=== PATIENT | female | born 1965 | race Caucasian/White ===

== ENCOUNTER 2017-05-25 08:59 | Observation (INO) ==
[2017-05-25] MEDS ORDERED: Naloxone 0.4 MG/ML INJ IVP PRN (09:16)
[2017-05-25] MEDS ORDERED: Ondansetron 4 MG/2 ML VIAL IVP PRN (09:16)
[2017-05-25] MEDS ORDERED: Acetaminophen 325 MG TABLET PO PRN (09:16)
--- NOTE | 2017-05-25 09:41 | Urology History & Physical ---
Date of Encounter: 05/25/17 Time of Encounter: 09:38 Assessment and Plan (1) Ureterolithiasis Current Visit: No Status: Acute 51-year-old woman with a history of a left ureteral stone and left renal stones. I have admitted her for pain control. We will anticipate proceeding with a left ureteroscopy, laser lithotripsy, and stent placement tomorrow to manage her pain. She was informed of the risks of the surgery including but not limited to bleeding, infection, injury to other structures, need for further procedures, stent irritation, incomplete fragmentation, ureteral perforation, need for nephrostomy tube, need for open repair, risks unforeseen, and the risk of anesthesia. She is willing to proceed. History of Present Illness Chief complaint: Left flank pain HPI: Ms. Baltazar is a 51 year old female who presents with a history of left flank pain. She has a history of nephrocalcinosis. She was proceeding by Dr. Restrepo. He performed a left ureteroscopy approximately year ago. She returns with left flank pain. A recent CT scan showed a 3 mm stone possibly seen in the left mid ureter. She says the pain is completely uncontrolled. She was visited in the office earlier today and then was admitted. The pain is in the left flank and radiates to the groin. It is severe. Pain medication does not help the pain. She denies any fevers or chills. Past Med Surg Social Fam HX - Past Medical History Medical history: hyperlipidemia, kidney stones, other Psychiatric history: anxiety - Past Surgical History Surgical History: hysterectomy - Social History Smoking Status: Never smoker Smokeless Tobacco Status: No Alcohol use: none Drug use: none - Family History Mother Hx Family Genitourinary Disorders: No Medications and Allergies Gabapentin [Neurontin] 600 mg PO BID 03/15/16 [History] Trazodone HCl [TraZODone] 100 mg PO HS PRN 03/15/16 [History] clonazePAM [Klonopin] 0.5 mg PO BID 03/15/16 [History] lamoTRIgine [Lamictal] 200 mg PO BID 03/15/16 [History] Dexmethylphenidate HCl [Dexmethylphenidate HCl ER] 25 mg PO DAILY 05/25/17 [ History] Diclofenac Sodium 25 mg PO BID 05/25/17 [History] SUMAtriptan succinate [Imitrex] 50 mg PO Q2H PRN 05/25/17 [History] Vitamin E 400 unit PO DAILY 05/25/17 [History] 3 Allergy/AdvReac Type Severity Reaction Status Date / Time codeine AdvReac Itching Verified 05/25/17 09:38 prochlorperazine AdvReac See Verified 05/25/17 09:38 Comments Review of Systems - Constitutional no chills, no fever(s) - EENT Nose, mouth and throat: no dizziness - Cardiovascular no chest pain - Respiratory no dyspnea - Gastrointestinal nausea, no vomiting - Genitourinary Genitourinary: flank pain, no hematuria - Musculoskeletal no back pain - Integumentary no erythema, no rash - Neurological no weakness - Psychiatric no suicidal ideation - Hematologic/Lymphatic no easy bleeding - Allergic/Immunologic no wheezing Exam Initial Vital Signs Temp Pulse Resp BP Pulse Ox 97.8 F 70 16 175/109 100 05/25/17 09:35 05/25/17 09:35 05/25/17 09:35 05/25/17 09:35 05/25/17 09:35 - General physical appearance Present: well developed, well nourished, moderate distress - Eyes Absent: icteric - ENT Present: normal nares - Neck Present: trachea midline - Respiratory Present: normal respiratory effort - Cardiovascular Cardiovascular exam IM: RRR - Abdomen Abdomen: Present: soft Urology Results - Labs All other labs normal. - Imaging CT scan - abdomen: report reviewed, image reviewed CT scan - pelvis: report reviewed, image reviewed
[2017-05-25] MEDS ORDERED: traZODone 50 MG TABLET PO PRN (09:43)
[2017-05-25] MEDS ORDERED: SUMAtriptan succinate 50 MG TABLET PO PRN (09:43)
[2017-05-25] MEDS: *HR* HYDROmorphone (PF) 1 MG/ML SYRINGE IVP PRN ×5 (10:33→23:50)
[2017-05-25] MEDS: 0.9 % Sodium Chloride 1,000 ML IVC SCH ×2 (10:33→20:46)
[2017-05-25] MEDS: *HR* OxyCODONE Immed Rel 5 MG TABLET PO PRN ×2 (11:54→18:06)
[2017-05-25 12:54] LABS: Basophils % 0.4 %; Eosinophils # 0.4 K/mcL (0.0-0.6); Eosinophils % 5.1 %; Hematocrit 38.5 % (35.3-44.9); Hemoglobin 12.6 g/dL (11.5-15.4); Immature Granulocytes % 0.3 % (0-4); Immature Platelets 2.6 % (1.1-6.1); Lymphocytes # 1.9 K/mcL (0.6-4.6); Lymphocytes % 26.8 %; Mean Corpuscular HGB Conc 32.7 g/dL (31.6-35.5); Mean Corpuscular Hemoglobin 29.4 pg (28.0-33.3); Mean Platelet Volume 9.8 fL (9.4-12.4); Monocytes # 0.3 K/mcL (0.0-1.3); Monocytes % 4.4 %; Neutrophils # 4.6 K/mcL (1.6-8.9); Platelet Count 305 K/mcL (140-400); Red Blood Count 4.28 M/mcL (3.82-4.97); Red Cell Distribution Width 14.1 % (11.5-14.5)
[2017-05-25 13:13] LABS: BUN/Creatinine Ratio 19 (6-26); Blood Urea Nitrogen 15 mg/dL (7-20); Calcium 10.2 mg/dL (8.6-10.8); Carbon Dioxide 26 mEq/L (19-29); Chloride 108 mEq/L (98-109); Glucose 87 mg/dL (70-99); Osmolality,Calculated 288 (280-300); Potassium 4.3 mEq/L (3.5-4.5); Sodium 139 mEq/L (136-145); eGFR For African Americans > 60 (> 60); eGFR For Non-African Americans > 60 (> 60)
[2017-05-25] MEDS ORDERED: lamoTRIgine 100 MG TABLET PO SCH (21:00)
[2017-05-25] MEDS ORDERED: clonazePAM 0.5 MG TABLET PO SCH (21:00)
[2017-05-25] MEDS ORDERED: Gabapentin 300 MG CAPSULE PO SCH (21:00)
--- NOTE | 2017-05-25 22:19 | Anesthesia Evaluation PreOp ---
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: Other (Mood disorder maintained on Lamictal, Trazadone, Klonopin, Focalin, Neurontin) Other Medical History: Denies Any Significant HX Anesthesia History: No Prior Anesthetic Complications, Past Anesthesia (L- ureteral stone extraction 03/2017, Hammer toe correction 2014) : No Test: Negative Alcohol Use: none Drug use: none Medications and Allergies Gabapentin [Neurontin] 600 mg PO BID 03/15/16 [History] Trazodone HCl [TraZODone] 100 mg PO HS PRN 03/15/16 [History] clonazePAM [Klonopin] 0.5 mg PO BID 03/15/16 [History] lamoTRIgine [Lamictal] 200 mg PO BID 03/15/16 [History] Dexmethylphenidate HCl [Dexmethylphenidate HCl ER] 25 mg PO DAILY 05/25/17 [ History] Diclofenac Sodium 25 mg PO BID 05/25/17 [History] SUMAtriptan succinate [Imitrex] 50 mg PO Q2H PRN 05/25/17 [History] Vitamin E 400 unit PO DAILY 05/25/17 [History] 3 Allergy/AdvReac Type Severity Reaction Status Date / Time codeine AdvReac Itching Verified 05/25/17 09:38 prochlorperazine AdvReac See Verified 05/25/17 09:38 Comments - Meds/Allergy Pre-op Review Medications Reviewed: Yes Allergies Reviewed: Yes Beta Blockers on Current Med List: No Anesthesia Results - Labs 05/25/17 12:43 05/25/17 12:43 Laboratory Tests 05/23/17 05/25/17 21:46 12:43 Est GFR (Non-Af Amer) > 60 Urine Test Negative Laboratory Results - Imaging EKG: image reviewed Chest x-ray: report reviewed Anesthesia Exam Vital Signs Temp Pulse Resp BP Pulse Ox 05/25/17 19:07 97.5 F L 76 14 148/80 98 05/25/17 14:32 97.9 F 71 15 119/80 99 05/25/17 11:51 98.0 F 73 16 162/81 99 05/25/17 09:35 97.8 F 70 16 175/109 100 Intake and Output 05/25/17 05/25/17 05/25/17 07:59 15:59 23:59 Intake Total 120 / 120 1120 / 1120 Output Total 0 / 0 100 / 100 Balance 120 / 120 1020 / 1020 Intake: IV Fluids 1000 / 1000 0.9 % Sodium Chloride 1, 1000 / 1000 000 ML @ 125 mls/hr IVC . Q8H MICH Rx#:[id number] Oral 120 / 120 120 / 120 Output: Urine 0 / 0 100 / 100 Other: Meal Dinner Percent of Meal Consumed 100% Weight 62.5 kg Patient Weight 05/25/17 23:59 Weight 62.5 kg Weight: 137# NPO (# of Hours): MNOc - HEENT Pupil (Motor): Pupils equal, EOMI Mallampati: II Teeth: Normal Oral Opening: Greater than 3 - HUMAN CAPITAL CONSULTANT LOC: Oriented HUMAN CAPITAL CONSULTANT Motor: Normal RUE, Normal LUE, Normal RLE, Normal LLE, Normal Face [employer]AN [employer]ITAL CONSULTANT Sensory: Normal: RUE, LUE, RLE, LLE, Face - Cardiac Rhythm: Regular Murmur: None - Pulmonary Breath Sounds: bilateral Clear Respiratory Effort: Symmetrical Anesthesia Assess/Plan ASA Score: 2 Modified [place] Scale for Level of Consciousness: Cooperative, oriented, and tranquil Anesthetic Plan: General Monitoring Plan: Standard Monitors Recovery Plan: PACU
[2017-05-25 22:40] LABS: Bilirubin,Urine Negative (Negative); Blood,Urine Moderate (Negative); Clarity,Urine Clear (Clear); Color,Urine Yellow (Yellow); Glucose,Urine (UA) Normal (Normal); Ketones,Urine Negative (Negative); Leukocyte Esterase,Urine Moderate (Negative); Nitrite,Urine Negative (Negative); Protein,Urine Negative (Neg-Trace); Specific Gravity,Urine 1.013 (1.010-1.025); Urobilinogen,Urine Normal (Normal)
[2017-05-25 22:43] LABS: Bacteria,Urine None Seen per hpf (None-Few); Hyaline Casts,Urine None Seen per lpf (None-Few); RBC,Urine 30-50 per hpf (0-3); Squamous Epithelial Cell,Urine Many per lpf (None-Few); WBC,Urine 15-30 per hpf (0-3)
[2017-05-25] MEDS: Ketorolac 30 MG/ML VIAL IVP SCH (23:48)
[2017-05-26] MEDS: *HR* HYDROmorphone (PF) 1 MG/ML SYRINGE IVP PRN ×6 (02:08→10:06)
[2017-05-26] MEDS: Ketorolac 30 MG/ML VIAL IVP SCH (06:04)
[2017-05-26] MEDS: 0.9 % Sodium Chloride 1,000 ML IVC SCH (06:05)
[2017-05-26] MEDS ORDERED: Levofloxacin 500 MG/100 ML 500 MG/100 ML BAG IVPB ONE (07:00)
--- NOTE | 2017-05-26 07:12 | Urology Progress Note ---
Date of Encounter: 05/26/17 Time of Encounter: 07:10 - Assessment and Plan (1) Ureterolithiasis Current Visit: No Status: Acute Assessment and plan: Left sided stones. Plan for left ureteroscopy, laser lithotripsy, and stent placement. Antibiotic being given. All risks were informed. She is willing to proceed. Progress Note Narrative: 51 year old woman with left renal stone and left distal ureteral stone. She is still having pain. Plan for ureteroscopy today. Objective Initial Vital Signs Temp Pulse Resp BP Pulse Ox 97.8 F 70 16 175/109 100 05/25/17 09:35 05/25/17 09:35 05/25/17 09:35 05/25/17 09:35 05/25/17 09:35 - General physical appearance Present: well developed, well nourished, moderate distress - Respiratory Present: normal respiratory effort - Abdomen Present: soft - Labs 05/25/17 12:43 05/25/17 12:43 Diabetes panel 05/25/17 Range/Units 12:43 Sodium 139 (136-145) mEq/L Potassium 4.3 (3.5-4.5) mEq/L Chloride 108 (98-109) mEq/L Carbon Dioxide 26 (19-29) mEq/L BUN 15 (7-20) mg/dL Creatinine 0.80 (0.57-1.11) mg/dL Glucose 87 (70-99) mg/dL Calcium 10.2 (8.6-10.8) mg/dL Calcium panel 05/25/17 Range/Units 12:43 Calcium 10.2 (8.6-10.8) mg/dL Pituitary panel 05/25/17 Range/Units 12:43 Sodium 139 (136-145) mEq/L Potassium 4.3 (3.5-4.5) mEq/L Chloride 108 (98-109) mEq/L Carbon Dioxide 26 (19-29) mEq/L BUN 15 (7-20) mg/dL Creatinine 0.80 (0.57-1.11) mg/dL Glucose 87 (70-99) mg/dL Calcium 10.2 (8.6-10.8) mg/dL Adrenal panel 05/25/17 Range/Units 12:43 Sodium 139 (136-145) mEq/L Potassium 4.3 (3.5-4.5) mEq/L Chloride 108 (98-109) mEq/L Carbon Dioxide 26 (19-29) mEq/L BUN 15 (7-20) mg/dL Creatinine 0.80 (0.57-1.11) mg/dL Glucose 87 (70-99) mg/dL Calcium 10.2 (8.6-10.8) mg/dL Consult Discharge Plan - Plan Referrals: Kelly Nieto DO [Primary Care Provider] -
[2017-05-26] MEDS ORDERED: Ringers Solution, Lactated 1,000 ML ONE (07:42)
[2017-05-26] MEDS ORDERED: ceFAZolin 2,000 MG in D5% in Water 100 ML IVPB ONE (07:45)
[2017-05-26] MEDS ORDERED: *HR* Propofol 200 MG/20 ML VIAL IVP ONE (07:49)
[2017-05-26] MEDS ORDERED: Lidocaine -MPF 2% 2 ML VIAL ONE (07:49)
[2017-05-26] MEDS ORDERED: *HR* FentaNYL (PF) 100 MCG/2 ML VIAL ONE (07:49)
[2017-05-26] MEDS ORDERED: Dexamethasone 4 MG/ML VIAL ONE (08:24)
[2017-05-26] MEDS ORDERED: Ondansetron 4 MG/2 ML VIAL ONE (08:24)
[2017-05-26] MEDS ORDERED: *HR* Promethazine 25 MG/ML VIAL IVP PRN (08:30)
[2017-05-26] MEDS ORDERED: Ondansetron 4 MG/2 ML VIAL IVP ONE (08:30)
[2017-05-26] MEDS ORDERED: Ringers Solution, Lactated 1,000 ML IVC SCH (08:30)
--- NOTE | 2017-05-26 08:54 | Operative Note ---
Date of procedure: 05/26/17 Pre-op diagnosis: Left renal stone Post-op diagnosis: same Procedure: Left ureteroscopy, laser lithotripsy, basket stone extraction, left ureteral stent placement. Implants: 4.8 [place] x 24cm JJ stent. Complications: none. Anesthesia: GETA Surgeon: Jacoby Luevano Specimen: none Condition: stable Disposition: PACU Procedure in Detail: Indications: Mandi is a 51-year-old woman who has a history of left flank pain. A CT scan showed stone in her left kidney and a possible distal left ureteral stone. She has continued left flank pain. She wishes to have the stone removed. Therefore , she elected undergo a left ureteroscopy, laser lithotripsy, basket stone extraction, and left ureteral stent placement. She is aware of the risks of the procedure including but not limited to bleeding, infection, injury to other structures, need for further procedures, need for stent, stent irritation, need for nephrostomy tube, incomplete treatment, need for open repair, risks unforeseen, and the risk of anesthesia. She is on proceed. Procedure: After informed consent was obtained the patient was brought back to the operating room and placed in supine position. A time out was performed. General anesthesia was administered and an LMA was placed. She was then placed in the lithotomy position. She was prepped and draped in the usual sterile fashion. Cystoscopy was performed. The anterior urethra was normal. There was no evidence of bladder tumors. The ureteral orifices were in the normal orthotopic position. A Zip wire was placed in the left ureteral orifice. The wire was brought into the kidney under fluoroscopic guidance. The distal ureter was gently dilated with the 11 [place] dilator. The semirigid ureteroscope was advanced into the ureter. No stone was seen in the ureter. The scope was advanced into the proximal ureter. A sensor wire was then placed in the scope and the scope was removed. I tended to pass the 11/13 [place] ureteral access sheath, but it did not move beyond the distal ureter. This was then removed. I then advanced the flexible ureteroscope over the sensor wire into the kidney under fluoroscopic guidance. The sensor wire was removed. All the calyces were surveyed. There was stone in the lower pole calyx. The lower pole stone was basketed and removed into the upper pole calyx. The remaining portion of the stone debris in the lower pole calyx was very small and irrigated out of the lower pole calyx. One stone fragment was basket extracted and deployed into the bladder. The larger stone was then fractionated using the 200 micron laser fiber into small pieces. All fragments appeared to be less than 1 mm in diameter. Once adequate fragmentation was performed I removed the scope. A 4.8 [place] by 24 cm double-J stent was then placed with good curl seen in the bladder and the kidney. The bladder was drained. The dangle string was tucked into the vagina and will be used to remove the stent at a later date. The patient was then awakened from general anesthesia and brought to recovery room in good condition. All sponge, needle, and instrument counts were correct.
--- NOTE | 2017-05-26 08:56 | Discharge Summary ---
Date of Encounter: 05/26/17 Time of Encounter: 08:54 - Discharge Diagnosis (1) Ureterolithiasis Priority: Primary Status: Acute - Discharge Medications Prescriptions: Oxycodone HCl/Acetaminophen [Percocet 5-325 mg Tablet] 1 each PO Q4HR PRN #20 tablet PRN Reason: Pain Docusate [Colace] 100 mg PO BID #60 capsule Phenazopyridine HCl [Pyridium] 200 mg PO TIDAC #12 tab Home Medications: Gabapentin [Neurontin] 600 mg PO BID 03/15/16 [History] Trazodone HCl [TraZODone] 100 mg PO HS PRN 03/15/16 [History] clonazePAM [Klonopin] 0.5 mg PO BID 03/15/16 [History] lamoTRIgine [Lamictal] 200 mg PO BID 03/15/16 [History] Dexmethylphenidate HCl [Dexmethylphenidate HCl ER] 25 mg PO DAILY 05/25/17 [ History] Diclofenac Sodium 25 mg PO BID 05/25/17 [History] SUMAtriptan succinate [Imitrex] 50 mg PO Q2H PRN 05/25/17 [History] Vitamin E 400 unit PO DAILY 05/25/17 [History] Docusate [Colace] 100 mg PO BID #60 capsule 05/26/17 [Rx] Oxycodone HCl/Acetaminophen [Percocet 5-325 mg Tablet] 1 each PO Q4HR PRN #20 tablet 05/26/17 [Rx] Phenazopyridine HCl [Pyridium] 200 mg PO TIDAC #12 tab 05/26/17 [Rx] Allergies/Adverse Reactions: 3 Allergy/AdvReac Type Severity Reaction Status Date / Time codeine AdvReac Itching Verified 05/25/17 09:38 prochlorperazine AdvReac See Verified 05/25/17 09:38 Comments Labs on day of discharge: Labs from last 24 hours 05/26/17 05/25/17 05/25/17 05:53 22:30 22:30 WBC RBC Hgb Hct MCV MCH MCHC RDW Plt Count MPV Immature Gran % Seg Neutrophils % Lymphocytes % Monocytes % Eosinophils % Basophils % Neutrophils # Lymphocytes # Monocytes # Eosinophils # Basophils # Immature Plt Fraction Sodium Potassium Chloride Carbon Dioxide BUN Creatinine Est GFR ( Amer) Est GFR (Non-Af Amer) BUN/Creatinine Ratio Glucose POC Glucose 84 Calculated Osmolality Calcium Urine Color Yellow Urine Clarity Clear Urine pH 7.0 Ur Specific [place] 1.013 Urine Protein Negative Urine Glucose (UA) Normal Urine Ketones Negative Urine Blood Moderate H Urine Nitrite Negative Urine Bilirubin Negative Urine Urobilinogen Normal Ur Leukocyte Esterase Moderate H Urine Microscopic RBC 30-50 H Urine Microscopic WBC 15-30 H Ur Squamous Epith Cells Many H Urine Bacteria None Seen Hyaline Casts None Seen Ur Culture Indicated? YES A Urine Test Negative Specimen Rejected 05/25/17 05/25/17 05/25/17 12:43 12:43 10:53 WBC 7.3 RBC 4.28 Hgb 12.6 Hct 38.5 MCV 90.0 MCH 29.4 MCHC 32.7 RDW 14.1 Plt Count 305 MPV 9.8 Immature Gran % 0.3 Seg Neutrophils % 63.0 Lymphocytes % 26.8 Monocytes % 4.4 Eosinophils % 5.1 Basophils % 0.4 Neutrophils # 4.6 Lymphocytes # 1.9 Monocytes # 0.3 Eosinophils # 0.4 Basophils # 0.0 Immature Plt Fraction 2.6 Sodium 139 Potassium 4.3 Chloride 108 Carbon Dioxide 26 BUN 15 Creatinine 0.80 Est GFR ( Amer) > 60 Est GFR (Non-Af Amer) > 60 BUN/Creatinine Ratio 19 Glucose 87 POC Glucose Calculated Osmolality 288 Calcium 10.2 Urine Color Urine Clarity Urine pH Ur Specific [place] Urine Protein Urine Glucose (UA) Urine Ketones Urine Blood Urine Nitrite Urine Bilirubin Urine Urobilinogen Ur Leukocyte Esterase Urine Microscopic RBC Urine Microscopic WBC Ur Squamous Epith Cells Urine Bacteria Hyaline Casts Ur Culture Indicated? Urine Test Specimen Rejected Clotted Date of admission: 05/25/17 09:07 Primary care physician: Kelly Nieto DO Discharging clinician: Jacoby Luevano Anticipated date of discharge: 05/26/17 - Patient Status Disposition: Home, Self-Care Condition: Good Functional capacity at discharge: independent ambulation Overall status at discharge: patient is progressing back to baseline - Discharge Instructions Follow Up With: Jacoby Luevano MD [Partnered Physician] - (in 2-4 weeks.) Additional Instructions: 1. The patient can remove her stent on 05/31/2017 by pulling on the string. Otherwise,she can return to our office for removal. 2. She should expect to feel flank pain with voiding. 3. The patient should call for any fevers, chills, nausea, emesis, or uncontrolled pain. 4. Please provide a work excuse if necessary for up to 1 week off. 5. She should expect to see blood in the urine. - Diet and Activity Activity: increase activity as tolerated Diet: advance to your usual diet - Hospital Course Hospital course: Ms. Baltazar is a 51 year old female was admitted for left flank pain. She had a CT which showed left renal stones and a possible left ureteral stone. Her pain was not adequately controlled and on May 26, 2017 she underwent a left ureteroscopy, laser lithotripsy, stent placement. She did well after surgery and was discharged home later that day. - Time Spent with Patient Total time spent providing and/or coordinating discharge services: Less than 30 minutes Exam Initial Vital Signs Temp Pulse Resp BP Pulse Ox 97.8 F 70 16 175/109 100 05/25/17 09:35 05/25/17 09:35 05/25/17 09:35 05/25/17 09:35 05/25/17 09:35 - General physical appearance Present: well developed, well nourished, no distress - Eyes Absent: icteric - ENT Present: normal nares - Neck Present: trachea midline - Respiratory Present: normal respiratory effort - Cardiovascular Cardiovascular exam IM: RRR - Abdomen Abdomen: Present: soft
[2017-05-26] MEDS ORDERED: DEXMETHYLPHENIDATE HCL 25 MG PO SCH (09:00)
--- NOTE | 2017-05-26 10:18 | Anesthesia Evaluation Post Op ---
Date of Encounter: 05/26/17 Time of Encounter: 10:17 - Vital Signs Vital Signs: Vital Signs/O2 Sat, Most Current Temp Pulse Resp BP Pulse Ox 97.9 F 63 16 151/85 100 05/26/17 09:49 05/26/17 10:09 05/26/17 10:09 05/26/17 10:09 05/26/17 10:09 - Lungs Lungs: Clear Ascult./Percussion - Airway Airway: Non-obstructed - Cardiovascular Regular Rate - Mental Status Mental Status: Alert & Oriented, Answers Appropriately - Pain Pain Scale: 0 Pain Scale used: Numeric (1 - 10) - Nausea Vomiting Nausea Vomiting: Not Present - Hydration Hydration: Ice chips, Able to void Notes: 05/26/17 10:17 I have assessed this patient and find they meet discharge criteria. - Discharge PostOp Status: Transfer Patient to floor
[2017-05-26] MEDS ORDERED: SUMAtriptan succinate 50 MG TABLET PO PRN (10:41)
[2017-05-26] MEDS ORDERED: *HR* Belladonna Alkaloids/Opium 30 MG RECTAL SUPPOSITORY RC PRN (10:41)
[2017-05-26] MEDS ORDERED: *HR* OxyCODONE Immed Rel 5 MG TABLET PO PRN (10:41)
[2017-05-26] MEDS ORDERED: *HR* HYDROmorphone (PF) 1 MG/ML SYRINGE IVP PRN (10:41)
[2017-05-26] MEDS ORDERED: Ondansetron 4 MG/2 ML VIAL IVP PRN (10:41)
[2017-05-26] MEDS ORDERED: 0.9 % Sodium Chloride 1,000 ML IVC SCH (10:41)
[2017-05-26] MEDS ORDERED: Naloxone 0.4 MG/ML INJ IVP PRN (10:41)
[2017-05-26] MEDS ORDERED: traZODone 50 MG TABLET PO PRN (10:41)
[2017-05-26] MEDS ORDERED: Acetaminophen 325 MG TABLET PO PRN (10:41)
[2017-05-26] MEDS ORDERED: Ketorolac 30 MG/ML VIAL IVP SCH (12:00)
[2017-05-26 14:47] VITALS: BP 167/75
[2017-05-26] MEDS ORDERED: lamoTRIgine 100 MG TABLET PO SCH (21:00)
[2017-05-26] MEDS ORDERED: Gabapentin 300 MG CAPSULE PO SCH (21:00)
[2017-05-26] MEDS ORDERED: clonazePAM 0.5 MG TABLET PO SCH (21:00)
[2017-05-27] MEDS ORDERED: DEXMETHYLPHENIDATE HCL 25 MG PO SCH (09:00)
== END 2017-05-26 14:00 | disposition home or self-care (01) ==
LOC: 3ANU
PROVIDERS: ADMIT Urology; ATTEND Urology

== ENCOUNTER 2018-10-12 13:09 | Observation (INO) ==
[2018-10-12] MEDS ORDERED: Ketorolac 15 MG/ML VIAL IVP ONE (14:21)
[2018-10-12] MEDS ORDERED: Hyoscyamine SL 0.125 MG TAB.SUBL SL STA (14:21)
[2018-10-12] MEDS ORDERED: *HR* FentaNYL (PF) 100 MCG/2 ML VIAL IVP ONE (14:21)
[2018-10-12] MEDS ORDERED: Ondansetron 4 MG/2 ML VIAL IVP ONE (14:21)
--- NOTE | 2018-10-12 14:24 | Emergency Department Note ---
Disposition Clinical Impression: Ureterolithiasis, Urinary retention Disposition: Admitted As Inpatient Condition: Undetermined Time of Disposition: 18:03 Abdominal Pain HPI - General Chief Complaint: ED Abdominal Pain Stated Complaint: Kidney stones Time Seen by Provider: 10/12/18 14:14 Source: patient Mode of arrival: ambulatory Limitations: no limitations Nursing Notes Reviewed: Yes Vital Signs Reviewed: Yes - History of Present Illness HPI Narrative: 53-year-old female history of kidney stones arrives to the emergency department complaining of 2 days of right flank pain radiating down into her pubic region. The patient states this initially felt similar to previous kidney stones but the patient states that her pain is acutely worsened. The patient states she feels a large amount of pressure in her pubic region which she states is unusual for her. The patient states that she has associated nausea and vomiting. The patient has hematuria as well. The patient denies any vaginal discharge, chest pain, difficulty breathing. The patient is in a moderate amount of distress in the room secondary to pain. She is unable to sit still secondary pain. She denies any other complaints at this time. Pain Scale: 10 - Related Data Home Medications Medication Instructions Recorded Confirmed Gabapentin [Neurontin] 600 mg PO BID 03/15/16 05/25/17 Trazodone HCl [TraZODone] 100 mg PO HS PRN 03/15/16 05/25/17 clonazePAM [Klonopin] 0.5 mg PO BID 03/15/16 05/25/17 lamoTRIgine [Lamictal] 200 mg PO BID 03/15/16 05/25/17 Dexmethylphenidate HCl 25 mg PO DAILY 05/25/17 05/25/17 [Dexmethylphenidate HCl ER] Diclofenac Sodium 25 mg PO BID 05/25/17 05/25/17 SUMAtriptan succinate [Imitrex] 50 mg PO Q2H PRN 05/25/17 05/25/17 Vitamin E 400 unit PO DAILY 05/25/17 05/25/17 Previous Rx's Medication Instructions Recorded Docusate [Colace] 100 mg PO BID #60 capsule 05/26/17 Oxycodone HCl/Acetaminophen 1 each PO Q4HR PRN #20 tablet 05/26/17 [Percocet 5-325 mg Tablet] Phenazopyridine HCl [Pyridium] 200 mg PO TIDAC #12 tab 05/26/17 Naproxen [Naprosyn] 500 mg PO BID PRN #20 tablet 12/19/17 Allergies Allergy/AdvReac Type Severity Reaction Status Date / Time codeine AdvReac Itching Verified 05/25/17 09:38 prochlorperazine AdvReac See Verified 05/25/17 09:38 Comments All systems ED: reviewed and negative except as stated. Constitutional: Denies: fever, chills, weakness ENT ED: Denies: dysphagia Cardiovascular: Denies: chest pain Respiratory: Denies: dyspnea Gastrointestinal: Reports: abdominal pain, nausea, vomiting. Denies: diarrhea, constipation, hematemesis, melena, hematochezia Genitourinary: Denies: urgency, dysuria Musculoskeletal: Reports: back pain. Denies: neck pain, arthralgia, myalgia Integumentary: Denies: rash Neurological: Denies: headache, weakness Abdominal Pain PMH - Past Medical History Medical history: Reports: hyperlipidemia, kidney stones, other Reports: kidney stone Female Surgical History: Reports: , orthopedic, other Psychiatric history: Reports: anxiety - Social History Smoking status: Never smoker Alcohol use: Reports: rarely Drug use: Reports: none Physical Exam - General Limitations: no limitations General appearance: alert, in distress (Secondary to pain) - Head Head exam: atraumatic, normocephalic, normal inspection - Eye Eye exam: Present: normal appearance, PERRL, EOMI - ENT ENT exam: normal exam, normal oropharynx, mucous membranes moist - Neck Neck exam: Present: normal inspection, full ROM, trachea midline - Chest Chest inspection: Present: normal inspection, symmetric chest wall rise - Respiratory Respiratory exam: Present: normal lung sounds bilaterally - Cardiovascular Cardiovascular exam: Present: regular rate, normal rhythm, normal heart sounds - Abdominal Exam Abdominal exam: Present: soft, tenderness (Right flank). Absent: distention, guarding, rebound, rigidity, Barreto's sign, Rovsing's sign - Extremities Exam Extremities exam: Present: normal inspection, full ROM. Absent: tenderness, pedal edema - Neurological Exam Neurological exam: Present: alert, oriented X3 - Skin Skin exam: Present: warm, dry, intact, normal color Course Vital Signs Temperature 97.8 F 10/12/18 13:23 Pulse Rate 83 10/12/18 13:23 Respiratory Rate 20 10/12/18 13:23 Blood Pressure 147/88 10/12/18 13:23 O2 Sat by Pulse Oximetry 98 10/12/18 13:23 Temperature 97.8 F 10/12/18 14:38 Pulse Rate 83 10/12/18 14:38 Respiratory Rate 20 10/12/18 14:38 Blood Pressure 147/88 10/12/18 14:38 O2 Sat by Pulse Oximetry 98 10/12/18 14:38 Oxygen Delivery Oxygen Delivery Room Air Abdominal Pain - MDM Narrative Medical decision making narrative: Patient's workup in the emergency department demonstrates a 2.5 mm right-sided ureteral stone with multiple stones within the bladder. The patient has had some difficulty with urination. She had straight catheter the demonstrates no signs of urinary infection. The patient's urine was sent to culture however. The patient's pain was not originally controlled with gentle, Toradol, Levsin. The patient was given a milligram of Dilaudid which did help. Patient still has some moderate amount of pain at this time. The patient is noted to have some urinary retention so we will place a Matt at this time. I am concerned about the patient being unable to urinate multiple times attempting a bathroom despite urinary bladder distention. We will admit the patient to the hospital with consultation urology. Accepted by Dr. Smith - Lab Data Lab results reviewed: Yes I reviewed the patient's lab results. Result diagrams: 10/12/18 14:45 10/12/18 14:45 Lab Results 10/12/18 10/12/18 10/12/18 Range/Units 14:45 14:45 16:46 WBC 10.2 (4.3-11.1) K/mcL RBC 4.13 (3.82-4.97) M/mcL Hgb 12.2 (11.5-15.4) g/dL Hct 36.6 (35.3-44.9) % MCV 88.6 (83.0-100.0) fL MCH 29.5 (28.0-33.3) pg MCHC 33.3 (31.6-35.5) g/dL RDW 14.6 H (11.5-14.5) % Plt Count 334 (140-400) K/mcL MPV 9.6 (9.4-12.4) fL Immature Gran % 0.4 (0-4) % Seg Neutrophils % 75.5 % Lymphocytes % 17.4 % Monocytes % 4.7 % Eosinophils % 1.6 % Basophils % 0.4 % Neutrophils # 7.7 (1.6-8.9) K/mcL Lymphocytes # 1.8 (0.6-4.6) K/mcL Monocytes # 0.5 (0.0-1.3) K/mcL Eosinophils # 0.2 (0.0-0.6) K/mcL Basophils # 0.0 (0.0-0.2) K/mcL Sodium 139 (136-145) mEq/L Potassium 4.2 (3.5-5.1) mEq/L Chloride 108 H (98-107) mEq/L Carbon Dioxide 25 (23-29) mEq/L BUN 20 (6-20) mg/dL Creatinine 1.17 (0.60-1.20) mg/dL Est GFR ( Amer) 59 L (> 60) Est GFR (Non-Af Amer) 49 L (> 60) BUN/Creatinine Ratio 17 (6-26) Glucose 85 (70-105) mg/dL Calculated Osmolality 290 (280-300) Calcium 9.9 (8.6-10.3) mg/dL Total Bilirubin 0.3 (0.3-1.0) mg/dL Direct Bilirubin 0.1 (0.0-0.2) mg/dL Indirect Bilirubin 0.2 (0.0-1.2) mg/dL AST 19 (13-39) Units/L ALT 28 (7-52) Units/L Alkaline Phosphatase 79 (34-104) Units/L Serum Total Protein 6.5 (6.4-8.9) g/dL Albumin 4.1 (3.5-5.7) g/dL Globulin 2.4 (2.4-3.5) g/dL Albumin/Globulin Ratio 1.7 (1.1-2.2) Lipase 11 (11-82) Units/L Urine Color Dark Yellow (Yellow) Urine Clarity Cloudy A (Clear) Urine pH 7.0 (5.0-8.0) pH Units Ur Specific [place] 1.010 (1.010-1.025) Urine Protein Trace (Neg-Trace) mg/dL Urine Glucose (UA) Normal (Normal) mg/dL Urine Ketones Negative (Negative) mg/dL Urine Blood Large H (Negative) Urine Nitrite Negative (Negative) Urine Bilirubin Negative (Negative) Urine Urobilinogen Normal (Normal) mg/dL Ur Leukocyte Esterase Small H (Negative) Urine Microscopic RBC TNTC H (0-3) per hpf Urine Microscopic WBC 15-30 H (0-3) per hpf Ur Squamous Epith Cells Many H (None-Few) per lpf Urine Bacteria None Seen (None-Few) per hpf Hyaline Casts None Seen (None-Few) per lpf Ur Culture Indicated? NO. A (NO) - Radiology Data Radiology results reviewed: Yes I reviewed the patient's radiology results. Abdomen/Pelvis CT 10/12/18 14:14 IMPRESSION: Proximal right 2.5 mm ureteral stone causing mild right-sided hydronephrosis. Bilateral extensive nephrolithiasis. Multiple stones seen within the bladder measuring 3-4 mm in size. 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 D/ / 10/12/2018 16:04:41 Severino Hdez MD / [place] Interpreting Provider: Severino Hdez MD Attestation Statement - Attestation Attestation: Resident Attestation: I examined this patient and my medical decision making was reviewed with the Resident Physician. I agree with the documented findings, disposition and treatment plan as described except to the extent set forth belo w. We independently had [id number] contact with the patient. Right flank pain going into her abdomen. Reports going on for the past couple of days. Unable to urinate for 2 days. Previous history of kidney stones. Patient writhing around on the bed with concern for left CVA tenderness. No significant abdominal pain. This time an IV has been placed. Patient will receive medications, as well as workup for possible kidney stone. Patient will require further evaluation. She has been admitted multiple times in the past for kidney stones. Workup and reevaluation pending.
[2018-10-12 15:30] LABS: Basophils % 0.4 %; Eosinophils # 0.2 K/mcL (0.0-0.6); Eosinophils % 1.6 %; Hematocrit 36.6 % (35.3-44.9); Hemoglobin 12.2 g/dL (11.5-15.4); Immature Granulocytes % 0.4 % (0-4); Lymphocytes # 1.8 K/mcL (0.6-4.6); Lymphocytes % 17.4 %; Mean Corpuscular HGB Conc 33.3 g/dL (31.6-35.5); Mean Corpuscular Hemoglobin 29.5 pg (28.0-33.3); Mean Corpuscular Volume 88.6 fL (83.0-100.0); Mean Platelet Volume 9.6 fL (9.4-12.4); Monocytes # 0.5 K/mcL (0.0-1.3); Monocytes % 4.7 %; Neutrophils # 7.7 K/mcL (1.6-8.9); Platelet Count 334 K/mcL (140-400); Red Blood Count 4.13 M/mcL (3.82-4.97); Red Cell Distribution Width 14.6 % (11.5-14.5); Segmented Neutrophils % 75.5 %
[2018-10-12 15:47] LABS: Albumin 4.1 g/dL (3.5-5.7); Albumin/Globulin Ratio 1.7 (1.1-2.2); Bilirubin,Direct 0.1 mg/dL (0.0-0.2); Bilirubin,Indirect 0.2 mg/dL (0.0-1.2); Bilirubin,Total 0.3 mg/dL (0.3-1.0); Calcium 9.9 mg/dL (8.6-10.3); Globulin 2.4 g/dL (2.4-3.5); Potassium 4.2 mEq/L (3.5-5.1); Total Protein 6.5 g/dL (6.4-8.9)
[2018-10-12] MEDS ORDERED: *HR* HYDROmorphone (PF) 1 MG/ML SYRINGE IVP ONE ×2 (16:13→18:01)
[2018-10-12 17:02] LABS: Bilirubin,Urine Negative (Negative); Blood,Urine Large (Negative); Clarity,Urine Cloudy (Clear); Color,Urine Dark Yellow (Yellow); Glucose,Urine (UA) Normal (Normal); Ketones,Urine Negative (Negative); Leukocyte Esterase,Urine Small (Negative); Nitrite,Urine Negative (Negative); Protein,Urine Trace mg/dL (Neg-Trace); Urobilinogen,Urine Normal (Normal)
[2018-10-12 17:08] LABS: Bacteria,Urine None Seen per hpf (None-Few); Hyaline Casts,Urine None Seen per lpf (None-Few); RBC,Urine TNTC per hpf (0-3); Squamous Epithelial Cell,Urine Many per lpf (None-Few); WBC,Urine 15-30 per hpf (0-3)
[2018-10-12] MEDS ORDERED: Naloxone 0.4 MG/ML INJ IVP PRN (18:04)
[2018-10-12] MEDS ORDERED: traZODone 50 MG TABLET PO PRN (18:06)
[2018-10-12] MEDS ORDERED: SUMAtriptan succinate 50 MG TABLET PO PRN (18:06)
--- NOTE | 2018-10-12 18:39 | Internal Med History&Physical ---
Date of Encounter: 10/12/18 Time of Encounter: 18:30 Internal Medicine - H&P: HPI Chief complaint: Severe abdominal pain of about 3 days duration with nausea and vomiting History of present illness: Ms. Baltazar is a 53 year old female with pmh of hyperlipidemia , recurrent kidney stones presenting with complaints of severe nausea, vomiting aand abdominal pain starting about 3 days ago getting worse in the last 24hrs. Patient says she has been experiencing severe pressure in her pubic region along with pain coming in waves. She also says she ahs had stone extractions and stents in the past. She denies any fevers or chills. She complains of an inability to urinate as well. In the ER, she was given pain medication and IV fluids and urology was consulted. CT abdomen showed multiple stones in the bladder and a stone in the right flank. She is being admitted for further management Past Med Surg Social Fam HX - Past Medical History Medical history: hyperlipidemia, kidney stones, other Additional medical history: anemia, anxiety Psychiatric history: anxiety - Past Surgical History Surgical History: hysterectomy Additional surgical history: CORRECTION OF HALLUX ABDUCTOVALGUS DEFORMITY, partial hysterectomy (patient still has ovaries). - Social History Smoking Status: Never smoker Smokeless Tobacco Status: No Alcohol use: rarely Drug use: none - Family History Mother Adopted: No Living Status: Still Living Hx Family Cardiac Disorders: No Hx Family Respiratory Disorders: No Hx Family Cancer: No Hx Family GI Disorders: No Hx Family Endocrine Disorder: No Hx Family Neuromuscular Disorders: No Hx Family Neurologic Disorders: No Hx Family HEENT Disorders: No Hx Family Autoimmune Disorders: No Internal Medicine - H&P: Meds Gabapentin [Neurontin] 600 mg PO BID 03/15/16 [History] Trazodone HCl [TraZODone] 100 mg PO HS PRN 03/15/16 [History] clonazePAM [Klonopin] 0.5 mg PO BID 03/15/16 [History] lamoTRIgine [Lamictal] 200 mg PO BID 03/15/16 [History] Dexmethylphenidate HCl [Dexmethylphenidate HCl ER] 25 mg PO DAILY 05/25/17 [History] Diclofenac Sodium 25 mg PO BID 05/25/17 [History] SUMAtriptan succinate [Imitrex] 50 mg PO Q2H PRN 05/25/17 [History] Vitamin E 400 unit PO DAILY 05/25/17 [History] Docusate [Colace] 100 mg PO BID #60 capsule 05/26/17 [Rx] Oxycodone HCl/Acetaminophen [Percocet 5-325 mg Tablet] 1 each PO Q4HR PRN #20 tablet 05/26/17 [Rx] Phenazopyridine HCl [Pyridium] 200 mg PO TIDAC #12 tab 05/26/17 [Rx] Naproxen [Naprosyn] 500 mg PO BID PRN #20 tablet 12/19/17 [Rx] Allergy/AdvReac Type Severity Reaction Status Date / Time codeine AdvReac Itching Verified 05/25/17 09:38 prochlorperazine AdvReac See Verified 05/25/17 09:38 Comments All Systems PM: A 10-system review of systems was performed and is negative for pertinent findings except as documented above in the HPI. - Constitutional Constitutional: no chills, no fever(s), no night sweats - EENT Eyes: no change in vision, no discharge, no pain, no photophobia Ears: no ear discharge, no ear pain, no tinnitus Nose, mouth and throat: no dysphagia, no nasal discharge, no neck pain, no sore throat - Cardiovascular Cardiovascular ROS IM: no chest pain, no diaphoresis, no dyspnea, no lightheadedness, no palpitations, no syncope - Respiratory Respiratory: no cough, no dyspnea, no wheezing, no excessive phlegm production - Gastrointestinal Gastrointestinal: abdominal pain, no diarrhea, no hematemesis, no hematochezia, no melena, no nausea, no vomiting - Genitourinary Genitourinary: change in urinary stream, flank pain, no dysuria, no hematuria - Musculoskeletal Musculoskeletal ROS IM: no numbness, no tingling - Integumentary Integumentary IM: no rash, no unusual bruising - Neurological Neurological ROS: no confusion, no convulsions, no focal weakness, no numbness, no tingling, no tremor(s) - Hematologic/Lymphatic Hematologic/Lymphatic: no easy bruising - Constitutional Vitals: Temp Pulse Resp BP Pulse Ox 97.8 F 83 20 147/88 98 10/12/18 14:38 10/12/18 14:38 10/12/18 14:38 10/12/18 14:38 10/12/18 14:38 Exam: Severe diffuse and suprapubic abdominal pain - Head Head exam: Present: atraumatic, normocephalic - Eye Eye exam: Present: PERRL, conjuntiva pink, sclera anicteric Pupils: Present: PERRL - Neck Neck exam general surgery: Present: supple, trachea midline. Absent: lym phadenopathy - Respiratory Respiratory exam: Present: CTAB. Absent: accessory muscle use, rales, rhonchi, wheezes - Cardiovascular Cardiovascular exam: Present: RRR, +S1, +S2. Absent: diastolic murmur, gallop, rubs, systolic murmur - GI/Abdominal GI/Abdominal exam: Present: normal bowel sounds, soft, tenderness. Absent: distended Additional comments: suprapubic pain - Bimanual exam: Present: adnexal tenderness - Extremities Exam Extremities exam: Present: warm, radial pulses palpable and symmetrical. Absent: calf tenderness, cyanotic, pedal edema - Neurological Exam Neurological exam: Present: CN II-XII intact, oriented X3, no focal deficits. Absent: pronater drift, facial droop, speech deficit - Skin Skin exam: Present: dry, intact Internal Med - H&P Results - Labs CBC & Chem 7: 10/12/18 14:45 10/12/18 14:45 Labs: Short CBC 10/12/18 Range/Units 14:45 WBC 10.2 (4.3-11.1) K/mcL Hgb 12.2 (11.5-15.4) g/dL Hct 36.6 (35.3-44.9) % Plt Count 334 (140-400) K/mcL Neutrophils # 7.7 (1.6-8.9) K/mcL BMP 10/12/18 14:45 Sodium 139 Potassium 4.2 Chloride 108 H Carbon Dioxide 25 BUN 20 Creatinine 1.17 Glucose 85 Calcium 9.9 Liver Function 10/12/18 Range/Units 14:45 Total Bilirubin 0.3 (0.3-1.0) mg/dL Direct Bilirubin 0.1 (0.0-0.2) mg/dL AST 19 (13-39) Units/L ALT 28 (7-52) Units/L Alkaline Phosphatase 79 (34-104) Units/L Albumin 4.1 (3.5-5.7) g/dL Urine 10/12/18 Range/Units 16:46 Urine Color Dark Yellow (Yellow) Urine Clarity Cloudy A (Clear) Urine pH 7.0 (5.0-8.0) pH Units Ur Specific [place] 1.010 (1.010-1.025) Urine Protein Trace (Neg-Trace) mg/dL Urine Glucose (UA) Normal (Normal) mg/dL - Impressions ITS Impressions Abdomen/Pelvis CT 10/12/18 14:14 IMPRESSION: Proximal right 2.5 mm ureteral stone causing mild right-sided hydronephrosis. Bilateral extensive nephrolithiasis. Multiple stones seen within the bladder measuring 3-4 mm in size. 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 D/ / 10/12/2018 16:04:41 Severino Hdez MD / [email or web address] Interpreting Provider: Severino Hdez MD - Assessment and plan (1) Ureteral stone with hydronephrosis Current Visit: Yes Status: Acute Assessment and plan: Pt comes in with severe abdominal pain of 2-[address] abdomen shows multiple stones in the bladder, and right sided 2.5mm ureteral stone Will start on IV fluids and antibiotics with pain control. Urology consulted and appreciate recs (2) Ureterolithiasis Current Visit: Yes Status: Acute Assessment and plan: #See 1. Pt comes in with severe abdominal pain of 2-[address] abdomen shows multiple stones in the bladder, and right sided 2.5mm ureteral stone Will start on IV fluids and antibiotics with pain control. Urology consulted and appreciate recs (3) Anxiety Current Visit: Yes Status: Acute Assessment and plan: Continue clonazepam (4) DVT prophylaxis Current Visit: Yes Status: Acute Assessment and plan: Heparin sc - Time Spent With Patient Total time spent is greater than 50% in coordination of care (as documented) at patient's floor/unit and/or counseling patient:
[2018-10-12] MEDS ORDERED: cefTRIAXone 1,000 MG in Water for inj. (sterile) 20 ML 10 ML IVP SCH (19:00)
[2018-10-12] MEDS: 0.9 % Sodium Chloride 1,000 ML IVC SCH (20:00)
[2018-10-12] MEDS: *HR* FentaNYL (PF) 100 MCG/2 ML VIAL IVP PRN (20:01)
[2018-10-12] MEDS: *HR* Heparin 5,000 UNIT/ML VIAL SQ SCH (20:17)
[2018-10-12] MEDS ORDERED: clonazePAM 0.5 MG TABLET PO SCH (21:00)
[2018-10-12] MEDS ORDERED: lamoTRIgine 100 MG TABLET PO SCH (21:00)
[2018-10-12] MEDS ORDERED: Gabapentin 300 MG CAPSULE PO SCH (21:00)
[2018-10-12] MEDS: *HR* OxyCODONE/APAP 5/325 TABLET PO PRN (22:24)
[2018-10-13] MEDS: *HR* FentaNYL (PF) 100 MCG/2 ML VIAL IVP PRN ×2 (00:05→05:38)
[2018-10-13] MEDS: *HR* OxyCODONE/APAP 5/325 TABLET PO PRN (03:04)
[2018-10-13] MEDS: 0.9 % Sodium Chloride 1,000 ML IVC SCH (05:38)
[2018-10-13] MEDS: *HR* Heparin 5,000 UNIT/ML VIAL SQ SCH (05:39)
[2018-10-13 05:42] LABS: Basophils % 0.2 %; Eosinophils # 0.4 K/mcL (0.0-0.6); Eosinophils % 4.3 %; Hematocrit 31.4 % (35.3-44.9); Immature Granulocytes % 0.2 % (0-4); Lymphocytes % 48.2 %; Mean Corpuscular HGB Conc 33.4 g/dL (31.6-35.5); Mean Corpuscular Hemoglobin 29.5 pg (28.0-33.3); Mean Corpuscular Volume 88.2 fL (83.0-100.0); Mean Platelet Volume 9.7 fL (9.4-12.4); Monocytes # 0.5 K/mcL (0.0-1.3); Monocytes % 5.6 %; Neutrophils # 3.4 K/mcL (1.6-8.9); Platelet Count 264 K/mcL (140-400); Red Blood Count 3.56 M/mcL (3.82-4.97); Red Cell Distribution Width 14.7 % (11.5-14.5); Segmented Neutrophils % 41.5 %
[2018-10-13 05:44] LABS: Hemoglobin 10.5 g/dL (11.5-15.4)
[2018-10-13 06:05] LABS: Calcium 9.3 mg/dL (8.6-10.3); Magnesium 1.8 mg/dL (1.6-2.6); Phosphorous 3.5 mg/dL (2.7-4.5); Potassium 3.9 mEq/L (3.5-5.1)
--- NOTE | 2018-10-13 06:56 | Urology - Consult Note ---
Date of Encounter: 10/13/18 Time of Encounter: 06:54 - Assessment and Plan (1) Ureterolithiasis Current Visit: Yes Status: Acute Assessment and plan: We will plan on taking the patient to the operating today for cystoscopy and ri ght ureteral stent placement. (2) Urinary retention Current Visit: Yes Status: Acute Assessment and plan: This is likely secondary to distal ureteral stone. No expectation to put catheter back in place after procedure. Urology CN:HPI Consult date: 10/13/18 Reason for consult Urology: Hydronephrosis Requesting physician: Margarette Caraballo History of present illness: Mandi is a 53-year-old female well-known to urology service for recurrent kidney stones. Patient came to the emergency room yesterday secondary to severe right-sided flank pain. Patient was found to have a proximal right ureteral stone. Patient also with some calcifications possibly distal ureter. Patient was having some difficulty with voiding and had a catheter placed. She states this relieved her pressure in her bladder. Past Med Surg Social Fam HX - Past Medical History Medical history: hyperlipidemia, kidney stones, other Additional medical history: anemia, anxiety Psychiatric history: anxiety - Past Surgical History Surgical History: hysterectomy Additional surgical history: CORRECTION OF HALLUX ABDUCTOVALGUS DEFORMITY, partial hysterectomy (patient still has ovaries). - Social History Smoking Status: Never smoker Smokeless Tobacco Status: No Alcohol use: rarely Drug use: none - Family History Mother Adopted: No Living Status: Still Living Hx Family Cardiac Disorders: No Hx Family Respiratory Disorders: No Hx Family Cancer: No Hx Family GI Disorders: No Hx Family Endocrine Disorder: No Hx Family Neuromuscular Disorders: No Hx Family Neurologic Disorders: No Hx Family HEENT Disorders: No Hx Family Autoimmune Disorders: No Medications and Allergies Gabapentin [Neurontin] 600 mg PO BID 03/15/16 [History] Trazodone HCl [TraZODone] 100 mg PO HS PRN 03/15/16 [History] clonazePAM [Klonopin] 0.5 mg PO BID 03/15/16 [History] lamoTRIgine [Lamictal] 200 mg PO BID 03/15/16 [History] Dexmethylphenidate HCl [Dexmethylphenidate HCl ER] 25 mg PO DAILY 05/25/17 [History] Diclofenac Sodium 25 mg PO BID 05/25/17 [History] SUMAtriptan succinate [Imitrex] 50 mg PO Q2H PRN 05/25/17 [History] Vitamin E 400 unit PO DAILY 05/25/17 [History] Docusate [Colace] 100 mg PO BID #60 capsule 05/26/17 [Rx] Oxycodone HCl/Acetaminophen [Percocet 5-325 mg Tablet] 1 each PO Q4HR PRN #20 tablet 05/26/17 [Rx] Phenazopyridine HCl [Pyridium] 200 mg PO TIDAC #12 tab 05/26/17 [Rx] Naproxen [Naprosyn] 500 mg PO BID PRN #20 tablet 12/19/17 [Rx] Allergy/AdvReac Type Severity Reaction Status Date / Time codeine AdvReac Itching Verified 05/25/17 09:38 prochlorperazine AdvReac See Verified 05/25/17 09:38 Comments Review of Systems - Constitutional no chills, no fever(s) - EENT Nose, mouth and throat: no dizziness - Cardiovascular no chest pain - Respiratory no cough - Gastrointestinal no abdominal pain, no nausea, no vomiting Exam Initial Vital Signs Temp Pulse Resp BP Pulse Ox 97.8 F 83 20 147/88 98 10/12/18 13:23 10/12/18 13:23 10/12/18 13:23 10/12/18 13:23 10/12/18 13:23 General/Neuological: alert and oriented x 3 Eyes: normal pupils, non-icteric Neck: no lymphadenopathy noted, supple to touch ABD: soft, nontender, no masses palpated, good bowel sounds Back: no pain on percussion bilaterally Skin: no rashes noted Musculoskeletal: normal gait, FROMx4 Urology Results - Labs 10/13/18 05:19 10/13/18 05:19 Abnormal lab results RBC 3.56 M/mcL (3.82-4.97) L 10/13/18 05:19 Hgb 10.5 g/dL (11.5-15.4) L D 10/13/18 05:19 Hct 31.4 % (35.3-44.9) L 10/13/18 05:19 RDW 14.7 % (11.5-14.5) H 10/13/18 05:19 Chloride 110 mEq/L (98-107) H 10/13/18 05:19 Est GFR ( Amer) 58 (> 60) L 10/13/18 05:19 Est GFR (Non-Af Amer) 48 (> 60) L 10/13/18 05:19 Urine Clarity Cloudy (Clear) A 10/12/18 16:46 Urine Blood Large (Negative) H 10/12/18 16:46 Ur Leukocyte Esterase Small (Negative) H 10/12/18 16:46 Urine Microscopic RBC TNTC per hpf (0-3) H 10/12/18 16:46 Urine Microscopic WBC 15-30 per hpf (0-3) H 10/12/18 16:46 Ur Squamous Epith Cells Many per lpf (None-Few) H 10/12/18 16:46 Ur Culture Indicated? NO. (NO) A 10/12/18 16:46 Diabetes panel 10/12/18 10/13/18 Range/Units 14:45 05:19 Sodium 139 140 (136-145) mEq/L Potassium 4.2 3.9 (3.5-5.1) mEq/L Chloride 108 H 110 H (98-107) mEq/L Carbon Dioxide 25 25 (23-29) mEq/L BUN 20 20 (6-20) mg/dL Creatinine 1.17 1.19 (0.60-1.20) mg/dL Glucose 85 98 (70-105) mg/dL Calcium 9.9 9.3 (8.6-10.3) mg/dL AST 19 (13-39) Units/L ALT 28 (7-52) Units/L Alkaline Phosphatase 79 (34-104) Units/L Albumin 4.1 (3.5-5.7) g/dL Calcium panel 10/12/18 10/13/18 Range/Units 14:45 05:19 Calcium 9.9 9.3 (8.6-10.3) mg/dL Phosphorus 3.5 (2.7-4.5) mg/dL Albumin 4.1 (3.5-5.7) g/dL Pituitary panel 10/12/18 10/13/18 Range/Units 14:45 05:19 Sodium 139 140 (136-145) mEq/L Potassium 4.2 3.9 (3.5-5.1) mEq/L Chloride 108 H 110 H (98-107) mEq/L Carbon Dioxide 25 25 (23-29) mEq/L BUN 20 20 (6-20) mg/dL Creatinine 1.17 1.19 (0.60-1.20) mg/dL Glucose 85 98 (70-105) mg/dL Calcium 9.9 9.3 (8.6-10.3) mg/dL Adrenal panel 10/12/18 10/13/18 Range/Units 14:45 05:19 Sodium 139 140 (136-145) mEq/L Potassium 4.2 3.9 (3.5-5.1) mEq/L Chloride 108 H 110 H (98-107) mEq/L Carbon Dioxide 25 25 (23-29) mEq/L BUN 20 20 (6-20) mg/dL Creatinine 1.17 1.19 (0.60-1.20) mg/dL Glucose 85 98 (70-105) mg/dL Calcium 9.9 9.3 (8.6-10.3) mg/dL Total Bilirubin 0.3 (0.3-1.0) mg/dL AST 19 (13-39) Units/L ALT 28 (7-52) Units/L Alkaline Phosphatase 79 (34-104) Units/L Albumin 4.1 (3.5-5.7) g/dL All other labs normal. Consult Discharge Plan - Plan Referrals: Kelly Nieto DO [Primary Care Provider] -
--- NOTE | 2018-10-13 07:12 | Anesthesia Evaluation PreOp ---
Date of Encounter: 10/13/18 Time of Encounter: 08:21 - Past History Planned Operation: Cystoscopy, Right Ureteral Stent Placement Cardiac History: Denies any Significant Hx Pulmonary History: Denies Any Significant HX POLICE SERGEANT PRECINCT History: Denies Any Significant HX Other Medical History: Other (mood disorder) Anesthesia History: No Prior Anesthetic Complications, Past Anesthesia Alcohol Use: rarely Drug use: none Medications and Allergies Gabapentin [Neurontin] 600 mg PO BID 03/15/16 [History] Trazodone HCl [TraZODone] 100 mg PO HS PRN 03/15/16 [History] clonazePAM [Klonopin] 0.5 mg PO BID 03/15/16 [History] lamoTRIgine [Lamictal] 200 mg PO BID 03/15/16 [History] Dexmethylphenidate HCl [Dexmethylphenidate HCl ER] 25 mg PO DAILY 05/25/17 [History] Diclofenac Sodium 25 mg PO BID 05/25/17 [History] SUMAtriptan succinate [Imitrex] 50 mg PO Q2H PRN 05/25/17 [History] Vitamin E 400 unit PO DAILY 05/25/17 [History] Docusate [Colace] 100 mg PO BID #60 capsule 05/26/17 [Rx] Oxycodone HCl/Acetaminophen [Percocet 5-325 mg Tablet] 1 each PO Q4HR PRN #20 tablet 05/26/17 [Rx] Phenazopyridine HCl [Pyridium] 200 mg PO TIDAC #12 tab 05/26/17 [Rx] Naproxen [Naprosyn] 500 mg PO BID PRN #20 tablet 12/19/17 [Rx] Allergy/AdvReac Type Severity Reaction Status Date / Time codeine AdvReac Itching Verified 05/25/17 09:38 prochlorperazine AdvReac See Verified 05/25/17 09:38 Comments - Meds/Allergy Pre-op Review Medications Reviewed: Yes Allergies Reviewed: Yes Beta Blockers on Current Med List: No Anesthesia Results - Labs 10/13/18 05:19 10/13/18 05:19 - Imaging EKG: report reviewed (04/13/2016 SINUS RHYTHM MINIMAL VOLTAGE CRITERIA FOR LVH, CONSIDER NORMAL VARIANT) Anesthesia Exam Vital Signs/O2 Sat/Glucose, Most Recent Temp Pulse Resp BP Pulse Ox 97.9 F 64 18 109/65 97 10/13/18 03:12 10/13/18 03:12 10/13/18 03:12 10/13/18 03:12 10/13/18 03:12 Blood Glucose* 92 Height: 5'5''/1.65m Weight: 151 lbs/68.5 kg NPO (# of Hours): 8 Pain Scale: 7 Pain Scale Used: Numeric (1 - 10) - HEENT Pupil (Motor): EOMI Mallampati: II Teeth: Normal Oral Opening: Greater than 3 - POLICE SERGEANT PRECINCT POLICE SERGEANT PRECINCT Motor: Normal RUE, Normal LUE, Normal RLE, Normal LLE, Normal Face POLICE [employer]GE[employer] PRECINCT Sensory: Normal: RUE, LUE, RLE, LLE, Face - Cardiac Rhythm: Regular Murmur: None - Pulmonary Breath Sounds: bilateral Clear Respiratory Effort: Symmetrical Anesthesia Assess/Plan ASA Score: 2 Level of consciousness: Cooperative, Oriented, Tranquil Anesthetic Plan: General Monitoring Plan: Standard Monitors Recovery Plan: PACU
[2018-10-13] MEDS ORDERED: *HR* Propofol 200 MG/20 ML VIAL IVP ONE (08:21)
[2018-10-13] MEDS ORDERED: *HR* Midazolam HCl 2 MG/2 ML VIAL ONE (08:21)
[2018-10-13] MEDS ORDERED: *HR* FentaNYL (PF) 100 MCG/2 ML VIAL ONE (08:21)
[2018-10-13] MEDS ORDERED: Ondansetron 4 MG/2 ML VIAL ONE (08:24)
[2018-10-13] MEDS ORDERED: Dexamethasone 4 MG/ML VIAL ONE (08:24)
[2018-10-13] MEDS ORDERED: Ketorolac 30 MG/ML VIAL ONE (08:24)
[2018-10-13] MEDS ORDERED: *HR* HYDROmorphone (PF) 1 MG/ML SYRINGE IVP PRN (08:27)
[2018-10-13] MEDS ORDERED: DEXMETHYLPHENIDATE HCL 25 MG PO SCH (09:00)
--- NOTE | 2018-10-13 09:08 | Event Note ---
Date of Encounter: 10/13/18 Time of Encounter: 09:08 Patient okay to discharge home from urology standpoint. Patient will be scheduled for follow-up return to the operating room. No office follow-up needed.
--- NOTE | 2018-10-13 09:08 | Operative Note ---
Date of procedure: 10/13/18 Pre-op diagnosis: right proximal ureteral stone Post-op diagnosis: same Procedure: Cystoscopy and right 6 x 26 cm ureteral stent placement Anesthesia: GETA Surgeon: Raymond Jean Was there an assistant professor of archaeology present: No Estimated blood loss (cc): 0 Specimen: none Condition: stable Disposition: PACU Procedure in Detail: Patient was prepped and draped in normal sterile fashion. Timeout procedure performed. I then inserted the cystoscope into the patient's bladder. I did visualize 3 small stones within the patient's bladder. These were drained from the patient's bladder. The right ureteral orifice was cannulated using a Glidewire. I then placed a 6 x 26 and meter stent with good curl seen in the upper pole of the right kidney as well as in the bladder. The bladder was drained and procedure was ended.
--- NOTE | 2018-10-13 09:48 | Anesthesia Evaluation Post Op ---
Date of Encounter: 10/13/18 Time of Encounter: 09:47 - Vital Signs Vital Signs: Vital Signs/O2 Sat, Most Current Temp Pulse Resp BP Pulse Ox 98.9 F 69 18 138/90 99 10/13/18 09:38 10/13/18 09:38 10/13/18 09:38 10/13/18 09:38 10/13/18 09:38 - Lungs Lungs: Clear Ascult./Percussion - Airway Airway: Non-obstructed - Cardiovascular Regular Rate - Mental Status Mental Status: Alert & Oriented, Answers Appropriately - Pain Pain Scale: 5 Pain Scale used: Numeric (1 - 10) - Nausea Vomiting Nausea Vomiting: Not Present - Hydration Hydration: NPO, Has not voided - Discharge PostOp Status: Transfer Patient to floor
[2018-10-13] MEDS ORDERED: *HR* FentaNYL (PF) 100 MCG/2 ML VIAL IVP PRN (10:10)
[2018-10-13] MEDS ORDERED: Naloxone 0.4 MG/ML INJ IVP PRN (10:10)
[2018-10-13] MEDS ORDERED: 0.9 % Sodium Chloride 1,000 ML IVC SCH (10:10)
[2018-10-13] MEDS ORDERED: *HR* OxyCODONE/APAP 5/325 TABLET PO PRN (10:10)
[2018-10-13] MEDS ORDERED: *HR* Belladonna Alkaloids/Opium 60 MG RECTAL SUPPOSITORY RC PRN (10:34)
--- NOTE | 2018-10-13 12:44 | Discharge Summary ---
Orders not resulted at time of discharge: Pending orders 10/12/18 17:30 Culture,Urine [RM] Stat 10/13/18 08:50 XR KUB [XR] Routine Date of Encounter: 10/13/18 Time of Encounter: 12:30 - Discharge Diagnosis (1) Ureteral stone with hydronephrosis Priority: Primary Status: Acute Assessment and Plan: 53 year old female with pmh of hyperlipidemia , recurrent kidney stones presenting with complaints of severe nausea, vomiting aand abdominal pain starting about 3 days ago getting worse in the last 24hrs. Patient says she has been experiencing severe pressure in her pubic region along with pain coming in waves. She also says she ahs had stone extractions and stents in the past. She denies any fevers or chills. She complains of an inability to urinate as well. In the ER, she was given pain medication and IV fluids and urology was consulted. She was assessed with severe abdominal pain of 2-3 days duration due to kidney stones. CT abdomen shows multiple stones in the bladder, and right sided 2.5mm ureteral stone. She was started on IV fluids and antibiotics with pain control. Urology consulted and performed a cystoscopy with a right ureteral stent placement. She will follow up with urology as an outpatient (2) Ureterolithiasis Priority: Primary Status: Acute (3) Anxiety Priority: Primary Status: Acute (4) DVT prophylaxis Priority: Primary Status: Acute Hospital course: Ms. Baltazar is a 53 year old female - Time Spent with Patient Total time spent providing and/or coordinating discharge services: - Discharge Medications Prescriptions: OxyCODONE/APAP 5/325 [Percocet 5/325 MG] 1 each PO Q4HR PRN 6 Days #30 tablet PRN Reason: Pain Cefdinir [Omnicef] 300 mg PO BID #4 capsule Oxybutynin [Ditropan] 5 mg PO TID PRN #60 tablet PRN Reason: bladder spasms Phenazopyridine [Pyridium] 200 mg PO TIDAC #60 tablet Home Medications: Gabapentin [Neurontin] 600 mg PO BID 03/15/16 [History] Trazodone HCl [TraZODone] 100 mg PO HS PRN 03/15/16 [History] lamoTRIgine [Lamictal] 200 mg PO BID 03/15/16 [History] Dexmethylphenidate HCl [Dexmethylphenidate HCl ER] 25 mg PO DAILY 05/25/17 [History] SUMAtriptan succinate [Imitrex] 50 mg PO Q2H PRN 05/25/17 [History] Vitamin E 400 unit PO DAILY 05/25/17 [History] Cefdinir [Omnicef] 300 mg PO BID #4 capsule 10/13/18 [Rx] Cholecalciferol (D-3) [Vitamin D] 1,000 unit PO DAILY 10/13/18 [History] Ibuprofen [Ibu] 600 mg PO TID PRN 10/13/18 [History] OxyCODONE/APAP 5/325 [Percocet 5/325 MG] 1 each PO Q4HR PRN 6 Days #30 tablet 10/13/18 [Rx] Oxybutynin [Ditropan] 5 mg PO TID PRN #60 tablet 10/13/18 [Rx] Phenazopyridine [Pyridium] 200 mg PO TIDAC #60 tablet 10/13/18 [Rx] hydrOXYzine HCl [Hydroxyzine HCl] 25 mg PO TID 10/13/18 [History] Allergies/Adverse Reactions: Allergy/AdvReac Type Severity Reaction Status Date / Time codeine AdvReac Itching Verified 05/25/17 09:38 prochlorperazine AdvReac See Verified 05/25/17 09:38 Comments Date of admission: 10/12/18 18:17 Primary care physician: Kelly Nieto DO Consults: 10/12/18 17:39 Consult to Urology [CONS] Stat Consulting Provider: [facility] Reason for Consult: kidney stone, pain control, hydro Call Completed: Yes - Constitutional Vitals: Temp Pulse Resp BP Pulse Ox 98.9 F 69 18 138/90 99 10/13/18 09:38 10/13/18 09:38 10/13/18 09:38 10/13/18 09:38 10/13/18 09:38 Exam: Severe diffuse and suprapubic abdominal pain - Patient Status Disposition: Home, Self-Care Condition: Undetermined - Discharge Instructions Follow Up With: Kelly Nieto DO [Primary Care Provider] - (Patient will call for PCP hosptial follow up) Forms: Work/School Release, Inpatient Work/School Release
[2018-10-13 13:44] VITALS: BP 148/93
[2018-10-13] MEDS ORDERED: *HR* Heparin 5,000 UNIT/ML VIAL SQ SCH (18:00)
[2018-10-13] MEDS ORDERED: cefTRIAXone 1,000 MG in Water for inj. (sterile) 20 ML 10 ML IVP SCH (18:00)
[2018-10-13] MEDS ORDERED: Gabapentin 300 MG CAPSULE PO SCH (21:00)
[2018-10-13] MEDS ORDERED: clonazePAM 0.5 MG TABLET PO SCH (21:00)
[2018-10-13] MEDS ORDERED: lamoTRIgine 100 MG TABLET PO SCH (21:00)
[2018-10-13] MEDS ORDERED: traZODone 50 MG TABLET PO PRN (21:00)
[2018-10-14] MEDS ORDERED: DEXMETHYLPHENIDATE HCL 25 MG PO SCH (09:00)
== END 2018-10-13 15:26 | disposition home or self-care (01) ==
LOC: EMEROOARM 13:09 → 3ANU 13:09
PROVIDERS: ADMIT Internal Medicine; ATTEND Internal Medicine

== ENCOUNTER 2019-05-10 18:37 | Observation (INO) ==
[2019-05-10] MEDS ORDERED: Ondansetron 4 MG/2 ML VIAL IVP STA (19:16)
[2019-05-10] MEDS ORDERED: 0.9 % Sodium Chloride 1,000 ML IVC STA (19:16)
[2019-05-10] MEDS ORDERED: Ketorolac 15 MG/ML VIAL IVP ONE (19:16)
--- NOTE | 2019-05-10 19:16 | Emergency Department Note ---
Disposition Clinical Impression: Pyelonephritis, Renal calculus, bilateral Disposition: Admitted As Inpatient Condition: Good Referrals: Gunjan Martinez DO [Primary Care Provider] - Forms: ED Satisfaction Letter, Work/School Release Time of Disposition: 22:16 General Adult HPI - General Chief complaint: ED Abdominal Pain Stated complaint: left flank pain Time Seen by Provider: 05/10/19 19:02 Source: patient Limitations: no limitations Nursing Notes Reviewed: Yes Vital Signs Reviewed: Yes - History of Present Illness HPI Narrative: 53-year-old female with history of multiple kidney stones who presents the emergency department with left-sided flank pain. Patient states over the last several weeks she has had intermittent lesser abdominal pain, worse over the last few days. She states this feels similar to her previous kidney stones which required extraction per urology. The patient notes she has had no dysuria but does note straining with urination and hematuria. She denies any fever, chills, chest pain, shortness of breath. She denies any diarrhea or go to patient. She has previously had hysterectomy and denies any chance of being . Pain Scale: 8 - Related Data Home Medications Medication Instructions Recorded Confirmed Gabapentin [Neurontin] 600 mg PO BID 03/15/16 05/10/19 lamoTRIgine [Lamictal] 200 mg PO BID 03/15/16 05/10/19 Dexmethylphenidate HCl 25 mg PO DAILY 05/25/17 05/10/19 [Dexmethylphenidate HCl ER] SUMAtriptan succinate [Imitrex] 50 mg PO Q2H PRN 05/25/17 05/10/19 Cholecalciferol (D-3) [Vitamin D] 1,000 unit PO DAILY 10/13/18 05/10/19 Ibuprofen [Ibu] 600 mg PO TID PRN 10/13/18 05/10/19 hydrOXYzine HCl [Hydroxyzine HCl] 25 mg PO TID 10/13/18 05/10/19 Allergies Allergy/AdvReac Type Severity Reaction Status Date / Time cefdinir AdvReac Itching Verified 10/24/18 09:45 codeine AdvReac Itching Verified 05/25/17 09:38 prochlorperazine AdvReac See Verified 05/25/17 09:38 Comments Review of Systems: ROS per history of present illness, all other systems reviewed and negative or normal. All systems ED: reviewed and negative except as stated. Review of Systems: As Per HPI Past Medical History - Past Medical History Medical history: Reports: hyperlipidemia, kidney stones, other Surgical history: Reports: hysterectomy Psychiatric history: Reports: anxiety - Social History Smoking Status: Never smoker Smokeless Tobacco Status: No Alcohol use: Reports: rarely Drug use: Reports: none Physical Exam General: Conversant. Appears uncomfortable and in pain Follow commands. Appears stated age. Neck: No JVD. Trachea midline. Neck supple. Eyes: PERRL. No scleral icterus. HENT: Normocephalic and atraumatic. Moist mucus membranes. Cardiovascular: Regular rate and rhythm. Normal S1 and S2. No murmurs appr eciated. Normal capillary refill. Extremities well perfused with 2+ distal pulses bilaterally. No edema. Pulmonary: Normal and equal breath sounds bilaterally, anteriorly and posteriorly. No wheezes, rales, or rhonchi. Not in respiratory distress. Speaks in full sentences. Abdomen: Soft, nondistended. Patient does have left upper and lower quadrant abdominal tenderness. CVA tenderness. No guarding or rigidity. Neuro: Alert and oriented x3. No slurred speech. No focal deficits noted. Skin: No rashes noted on visualized skin. Musculoskeletal: No bony abnormalities visualized. Moves all extremities. Psych: Normal mood. Pleasant. Makes appropriate eye contact. - General Limitations: no limitations General appearance: alert Course Vital Signs Temperature 97.4 F L 05/10/19 18:39 Pulse Rate 91 05/10/19 18:39 Respiratory Rate 16 05/10/19 18:39 Blood Pressure 156/98 05/10/19 18:39 O2 Sat by Pulse Oximetry 99 05/10/19 18:39 Temperature 97.4 F L 05/10/19 18:55 Pulse Rate 73 05/10/19 21:11 Respiratory Rate 18 05/10/19 21:11 Blood Pressure 149/91 05/10/19 21:11 O2 Sat by Pulse Oximetry 97 05/10/19 21:11 Oxygen Delivery Oxygen Delivery Room Air Medical Decision Making - MDM Narrative Medical decision making narrative: 53-year-old female with history of multiple kidney stents who presents the emergency department with left-sided flank pain. Patient has had multiple kidney stones requiring extraction in the past and this feels similar. The patient has had hematuria and difficulty urinating intermittently passing blood. Her vital signs are stable upon arrival but she does appear uncomfortable. Labs were obtained which shows no significant leukocytosis or anemia. No significant only for abnormality or acute kidney injury. CT abdomen/pelvis was obtained which shows multiple bilateral nephrolithiasis without obvious hydronephrosis or obstruction. Urinalysis shows evidence of urinary tract infection. Patient was initiated on IV Rocephin for management of probable pyelo-. She was managed with Zofran, 1 L fluid bolus, Toradol. She had no significant improvement in her pain and was therefore given morphine as well as Dilaudid. Her pain persisted in the left flank. Given inability to manage the patients pain will admit for further pain control and monitoring. It is possible she is passing intermittent stones to cause her persistent symptoms and given her urinary tract infection she is at high risk for acute infected stone. Discussed case with on-call hospitalist Dr. Porter who agrees with plan for admission and accepts the patient to the inpatient service. Patient agrees with and understands course of treatment plan including plan for admission. All questions answered. - Medical Records Medical records reviewed: Yes I reviewed the patient's medical records. - Lab Data Lab results reviewed: Yes I reviewed the patient's lab results. Result diagrams: 05/10/19 19:19 05/10/19 19:19 Lab Results 05/10/19 05/10/19 05/10/19 Range/Units 19:00 19:00 19:19 WBC (4.3-11.1) K/mcL RBC (3.82-4.97) M/mcL Hgb (11.5-15.4) g/dL Hct (35.3-44.9) % MCV (83.0-100.0) fL MCH (28.0-33.3) pg MCHC (31.6-35.5) g/dL RDW (11.5-14.5) % Plt Count (140-400) K/mcL MPV (9.4-12.4) fL Immature Gran % (0-4) % Seg Neutrophils % % Lymphocytes % % Monocytes % % Eosinophils % % Basophils % % Neutrophils # (1.6-8.9) K/mcL Lymphocytes # (0.6-4.6) K/mcL Monocytes # (0.0-1.3) K/mcL Eosinophils # (0.0-0.6) K/mcL Basophils # (0.0-0.2) K/mcL Sodium 136 (136-145) mEq/L Potassium 3.8 (3.5-5.1) mEq/L Chloride 104 (98-107) mEq/L Carbon Dioxide 25 (23-29) mEq/L BUN 19 (6-20) mg/dL Creatinine 0.95 (0.60-1.20) mg/dL Est GFR ( Amer) > 60 (> 60) Est GFR (Non-Af Amer) > 60 (> 60) BUN/Creatinine Ratio 20 (6-26) Glucose 88 (70-105) mg/dL Calculated Osmolality 284 (280-300) Calcium 9.8 (8.6-10.3) mg/dL Urine Color Yellow (Yellow) Urine Clarity Cloudy A (Clear) Urine pH 6.0 (5.0-8.0) pH Units Ur Specific [place] 1.013 (1.010-1.025) Urine Protein Negative (Neg-Trace) mg/dL Urine Glucose (UA) Normal (Normal) mg/dL Urine Ketones Negative (Negative) mg/dL Urine Blood Negative (Negative) Urine Nitrite Negative (Negative) Urine Bilirubin Negative (Negative) Urine Urobilinogen Normal (Normal) mg/dL Ur Leukocyte Esterase Moderate H (Negative) Urine Microscopic RBC 0-3 (0-3) per hpf Urine Microscopic WBC 30-50 H (0-3) per hpf Ur Squamous Epith Cells Many H (None-Few) per lpf Urine Bacteria Few (None-Few) per hpf Hyaline Casts None Seen (None-Few) per lpf Ur Culture Indicated? YES A (NO) Urine Test Negative (Negative) 05/10/19 Range/Units 19:19 WBC 8.0 (4.3-11.1) K/mcL RBC 4.19 (3.82-4.97) M/mcL Hgb 12.2 (11.5-15.4) g/dL Hct 36.6 (35.3-44.9) % MCV 87.4 (83.0-100.0) fL MCH 29.1 (28.0-33.3) pg MCHC 33.3 (31.6-35.5) g/dL RDW 14.4 (11.5-14.5) % Plt Count 330 (140-400) K/mcL MPV 9.5 (9.4-12.4) fL Immature Gran % 0.2 (0-4) % Seg Neutrophils % 54.3 % Lymphocytes % 33.4 % Monocytes % 6.8 % Eosinophils % 5.1 % Basophils % 0.2 % Neutrophils # 4.4 (1.6-8.9) K/mcL Lymphocytes # 2.7 (0.6-4.6) K/mcL Monocytes # 0.6 (0.0-1.3) K/mcL Eosinophils # 0.4 (0.0-0.6) K/mcL Basophils # 0.0 (0.0-0.2) K/mcL Sodium (136-145) mEq/L Potassium (3.5-5.1) mEq/L Chloride (98-107) mEq/L Carbon Dioxide (23-29) mEq/L BUN (6-20) mg/dL Creatinine (0.60-1.20) mg/dL Est GFR ( Amer) (> 60) Est GFR (Non-Af Amer) (> 60) BUN/Creatinine Ratio (6-26) Glucose (70-105) mg/dL Calculated Osmolality (280-300) Calcium (8.6-10.3) mg/dL Urine Color (Yellow) Urine Clarity (Clear) Urine pH (5.0-8.0) pH Units Ur Specific [place] (1.010-1.025) Urine Protein (Neg-Trace) mg/dL Urine Glucose (UA) (Normal) mg/dL Urine Ketones (Negative) mg/dL Urine Blood (Negative) Urine Nitrite (Negative) Urine Bilirubin (Negative) Urine Urobilinogen (Normal) mg/dL Ur Leukocyte Esterase (Negative) Urine Microscopic RBC (0-3) per hpf Urine Microscopic WBC (0-3) per hpf Ur Squamous Epith Cells (None-Few) per lpf Urine Bacteria (None-Few) per hpf Hyaline Casts (None-Few) per lpf Ur Culture Indicated? (NO) Urine Test (Negative) - Radiology Data Radiology results reviewed: Yes I reviewed the patient's radiology results. Abdomen/Pelvis CT 05/10/19 19:07 IMPRESSION: Too numerous to count renal calculi bilaterally without hydronephrosis. Low-density renal lesions are stable No acute abnormality otherwise noted in the abdomen or pelvis. Stable 3 mm lingular nodule. This is stable compared to an exam from 2016 as well. Given its stability, this is likely benign. No follow-up imaging is recommended D/ / Kushal Price / Kushal Price Interpreting Provider: Kushal Price
[2019-05-10 19:27] LABS: Bilirubin,Urine Negative (Negative); Blood,Urine Negative (Negative); Clarity,Urine Cloudy (Clear); Color,Urine Yellow (Yellow); Glucose,Urine (UA) Normal (Normal); Ketones,Urine Negative (Negative); Leukocyte Esterase,Urine Moderate (Negative); Nitrite,Urine Negative (Negative); Protein,Urine Negative (Neg-Trace); Specific Gravity,Urine 1.013 (1.010-1.025); Urobilinogen,Urine Normal (Normal)
[2019-05-10 19:30] LABS: Bacteria,Urine Few per hpf (None-Few); Hyaline Casts,Urine None Seen per lpf (None-Few); RBC,Urine 0-3 per hpf (0-3); Squamous Epithelial Cell,Urine Many per lpf (None-Few); WBC,Urine 30-50 per hpf (0-3)
[2019-05-10 19:33] LABS: Basophils % 0.2 %; Eosinophils # 0.4 K/mcL (0.0-0.6); Eosinophils % 5.1 %; Hematocrit 36.6 % (35.3-44.9); Hemoglobin 12.2 g/dL (11.5-15.4); Immature Granulocytes % 0.2 % (0-4); Lymphocytes # 2.7 K/mcL (0.6-4.6); Lymphocytes % 33.4 %; Mean Corpuscular HGB Conc 33.3 g/dL (31.6-35.5); Mean Corpuscular Hemoglobin 29.1 pg (28.0-33.3); Mean Corpuscular Volume 87.4 fL (83.0-100.0); Mean Platelet Volume 9.5 fL (9.4-12.4); Monocytes # 0.6 K/mcL (0.0-1.3); Monocytes % 6.8 %; Neutrophils # 4.4 K/mcL (1.6-8.9); Platelet Count 330 K/mcL (140-400); Red Blood Count 4.19 M/mcL (3.82-4.97); Red Cell Distribution Width 14.4 % (11.5-14.5); Segmented Neutrophils % 54.3 %
[2019-05-10 19:51] LABS: BUN/Creatinine Ratio 20 (6-26); Blood Urea Nitrogen 19 mg/dL (6-20); Calcium 9.8 mg/dL (8.6-10.3); Carbon Dioxide 25 mEq/L (23-29); Chloride 104 mEq/L (98-107); Glucose 88 mg/dL (70-105); Osmolality,Calculated 284 (280-300); Potassium 3.8 mEq/L (3.5-5.1); Sodium 136 mEq/L (136-145); eGFR For African Americans > 60 (> 60); eGFR For Non-African Americans > 60 (> 60)
[2019-05-10] MEDS ORDERED: Morphine Sulfate 2 MG/ML SYRINGE IVP ONE (19:58)
--- NOTE | 2019-05-10 20:10 | Emergency Department Note ---
Disposition Clinical Impression: Pyelonephritis, Renal calculus, bilateral Disposition: Admitted As Inpatient Condition: Good Referrals: Gunjan Martinez DO [Primary Care Provider] - Forms: ED Satisfaction Letter, Work/School Release Time of Disposition: 22:16 General Adult HPI - General Chief complaint: ED Abdominal Pain Stated complaint: left flank pain Time Seen by Provider: 05/10/19 19:02 Source: patient Limitations: no limitations - History of Present Illness Pain Scale: 8 - Related Data Home Medications Medication Instructions Recorded Confirmed Gabapentin [Neurontin] 600 mg PO BID 03/15/16 05/10/19 lamoTRIgine [Lamictal] 200 mg PO BID 03/15/16 05/10/19 Dexmethylphenidate HCl 25 mg PO DAILY 05/25/17 05/10/19 [Dexmethylphenidate HCl ER] SUMAtriptan succinate [Imitrex] 50 mg PO Q2H PRN 05/25/17 05/10/19 Cholecalciferol (D-3) [Vitamin D] 1,000 unit PO DAILY 10/13/18 05/10/19 Ibuprofen [Ibu] 600 mg PO TID PRN 10/13/18 05/10/19 hydrOXYzine HCl [Hydroxyzine HCl] 25 mg PO TID 10/13/18 05/10/19 Allergies Allergy/AdvReac Type Severity Reaction Status Date / Time cefdinir AdvReac Itching Verified 10/24/18 09:45 codeine AdvReac Itching Verified 05/25/17 09:38 prochlorperazine AdvReac See Verified 05/25/17 09:38 Comments Past Medical History - Past Medical History Medical history: Reports: hyperlipidemia, kidney stones, other Surgical history: Reports: hysterectomy Psychiatric history: Reports: anxiety - Social History Smoking Status: Never smoker Smokeless Tobacco Status: No Alcohol use: Reports: rarely Drug use: Reports: none Physical Exam - General Limitations: no limitations General appearance: alert Course Vital Signs Temperature 97.4 F L 05/10/19 18:39 Pulse Rate 91 05/10/19 18:39 Respiratory Rate 16 05/10/19 18:39 Blood Pressure 156/98 05/10/19 18:39 O2 Sat by Pulse Oximetry 99 05/10/19 18:39 Temperature 97.4 F L 05/10/19 18:55 Pulse Rate 69 05/10/19 22:29 Respiratory Rate 18 05/10/19 22:29 Blood Pressure 164/95 05/10/19 22:29 O2 Sat by Pulse Oximetry 100 05/10/19 22:29 Oxygen Delivery Oxygen Delivery Room Air Medical Decision Making - Lab Data Result diagrams: 05/10/19 19:19 05/10/19 19:19 Lab Results 05/10/19 05/10/19 05/10/19 Range/Units 19:00 19:00 19:19 WBC (4.3-11.1) K/mcL RBC (3.82-4.97) M/mcL Hgb (11.5-15.4) g/dL Hct (35.3-44.9) % MCV (83.0-100.0) fL MCH (28.0-33.3) pg MCHC (31.6-35.5) g/dL RDW (11.5-14.5) % Plt Count (140-400) K/mcL MPV (9.4-12.4) fL Immature Gran % (0-4) % Seg Neutrophils % % Lymphocytes % % Monocytes % % Eosinophils % % Basophils % % Neutrophils # (1.6-8.9) K/mcL Lymphocytes # (0.6-4.6) K/mcL Monocytes # (0.0-1.3) K/mcL Eosinophils # (0.0-0.6) K/mcL Basophils # (0.0-0.2) K/mcL Sodium 136 (136-145) mEq/L Potassium 3.8 (3.5-5.1) mEq/L Chloride 104 (98-107) mEq/L Carbon Dioxide 25 (23-29) mEq/L BUN 19 (6-20) mg/dL Creatinine 0.95 (0.60-1.20) mg/dL Est GFR ( Amer) > 60 (> 60) Est GFR (Non-Af Amer) > 60 (> 60) BUN/Creatinine Ratio 20 (6-26) Glucose 88 (70-105) mg/dL Calculated Osmolality 284 (280-300) Calcium 9.8 (8.6-10.3) mg/dL Urine Color Yellow (Yellow) Urine Clarity Cloudy A (Clear) Urine pH 6.0 (5.0-8.0) pH Units Ur Specific [place] 1.013 (1.010-1.025) Urine Protein Negative (Neg-Trace) mg/dL Urine Glucose (UA) Normal (Normal) mg/dL Urine Ketones Negative (Negative) mg/dL Urine Blood Negative (Negative) Urine Nitrite Negative (Negative) Urine Bilirubin Negative (Negative) Urine Urobilinogen Normal (Normal) mg/dL Ur Leukocyte Esterase Moderate H (Negative) Urine Microscopic RBC 0-3 (0-3) per hpf Urine Microscopic WBC 30-50 H (0-3) per hpf Ur Squamous Epith Cells Many H (None-Few) per lpf Urine Bacteria Few (None-Few) per hpf Hyaline Casts None Seen (None-Few) per lpf Ur Culture Indicated? YES A (NO) Urine Test Negative (Negative) 05/10/19 Range/Units 19:19 WBC 8.0 (4.3-11.1) K/mcL RBC 4.19 (3.82-4.97) M/mcL Hgb 12.2 (11.5-15.4) g/dL Hct 36.6 (35.3-44.9) % MCV 87.4 (83.0-100.0) fL MCH 29.1 (28.0-33.3) pg MCHC 33.3 (31.6-35.5) g/dL RDW 14.4 (11.5-14.5) % Plt Count 330 (140-400) K/mcL MPV 9.5 (9.4-12.4) fL Immature Gran % 0.2 (0-4) % Seg Neutrophils % 54.3 % Lymphocytes % 33.4 % Monocytes % 6.8 % Eosinophils % 5.1 % Basophils % 0.2 % Neutrophils # 4.4 (1.6-8.9) K/mcL Lymphocytes # 2.7 (0.6-4.6) K/mcL Monocytes # 0.6 (0.0-1.3) K/mcL Eosinophils # 0.4 (0.0-0.6) K/mcL Basophils # 0.0 (0.0-0.2) K/mcL Sodium (136-145) mEq/L Potassium (3.5-5.1) mEq/L Chloride (98-107) mEq/L Carbon Dioxide (23-29) mEq/L BUN (6-20) mg/dL Creatinine (0.60-1.20) mg/dL Est GFR ( Amer) (> 60) Est GFR (Non-Af Amer) (> 60) BUN/Creatinine Ratio (6-26) Glucose (70-105) mg/dL Calculated Osmolality (280-300) Calcium (8.6-10.3) mg/dL Urine Color (Yellow) Urine Clarity (Clear) Urine pH (5.0-8.0) pH Units Ur Specific [place] (1.010-1.025) Urine Protein (Neg-Trace) mg/dL Urine Glucose (UA) (Normal) mg/dL Urine Ketones (Negative) mg/dL Urine Blood (Negative) Urine Nitrite (Negative) Urine Bilirubin (Negative) Urine Urobilinogen (Normal) mg/dL Ur Leukocyte Esterase (Negative) Urine Microscopic RBC (0-3) per hpf Urine Microscopic WBC (0-3) per hpf Ur Squamous Epith Cells (None-Few) per lpf Urine Bacteria (None-Few) per hpf Hyaline Casts (None-Few) per lpf Ur Culture Indicated? (NO) Urine Test (Negative) Attestation Statement - Attestation Attestation: I examined this patient and my medical decision-making was reviewed with the Resident Physician. I agree with the documented findings, disposition and treatment plan as described except to the extent set forth below. Patient 33-year-old female that presents to the emergency department with chief complaint of left-sided flank pain. Patient reports she has prior history of kidney stones is radiating sharp pain as well as nausea and vomiting. Physical exam patient is awake alert in moderate pain distress. Medical decision management of her studies and CT scan will be obtained to [facility] for possible kidney stone or pyelonephritis.
[2019-05-10] MEDS ORDERED: cefTRIAXone 1,000 MG in Water for inj. (sterile) 10 ML IVP ONE (20:36)
[2019-05-10] MEDS ORDERED: *HR* HYDROmorphone (PF) 1 MG/ML SYRINGE IVP ONE ×2 (21:02→22:22)
[2019-05-10] MEDS ORDERED: Naloxone 0.4 MG/ML INJ IVP PRN (22:40)
[2019-05-10] MEDS ORDERED: 0.9 % Sodium Chloride 1,000 ML IVC SCH (22:45)
[2019-05-10] MEDS ORDERED: SUMAtriptan succinate 50 MG TABLET PO PRN (22:57)
[2019-05-10] MEDS: *HR* Heparin 5,000 UNIT/ML VIAL SQ SCH (23:22)
[2019-05-10] MEDS: Gabapentin 300 MG CAPSULE PO SCH (23:37)
[2019-05-10] MEDS: lamoTRIgine 100 MG TABLET PO SCH (23:37)
[2019-05-10] MEDS: hydrOXYzine pamoate 25 MG CAPSULE PO SCH (23:37)
[2019-05-11] MEDS ORDERED: Ketorolac 15 MG/ML VIAL IVP ONE (00:44)
--- NOTE | 2019-05-11 03:19 | Internal Med History&Physical ---
Date of Encounter: 05/11/19 Time of Encounter: 03:13 Internal Medicine - H&P: HPI Chief complaint: Flank pain History of present illness: Ms. Baltazar is a 53 year old female with a history of nephrolithiasis who presented to the ED with a chief complaint of left-sided flank pain. Patient states that for the past several weeks she has had intermittent left-sided flank pain radiating around to her left lower groin region. Pain became unbearable today and states this feels similar to her previous kidney stones which required extraction per urology. Patient has had multiple ureteral stents placed in the past and follows with Dr. Rouse. Patient denies any dysuria but has noted small amounts of hematuria. She is also and having to strain to void. No reports of fever, chills, chest pain, shortness of breath, nausea,, vomiting or diarrhea. On arrival patient was afebrile and hemodynamically stable. Labs were obtained which shows no significant leukocytosis or anemia or acute kidney injury. CT abdomen/pelvis was obtained which shows multiple bilateral nephrolithiasis without obvious hydronephrosis or obstruction. Urinalysis shows evidence of urinary tract infection. Patient was hydrated and initiated on IV Rocephin. Case was discussed with Dr. Nogueira with urology who will follow-up with the patient in the morning. Past Med Surg Social Fam HX - Past Medical History Medical history: hyperlipidemia, kidney stones, other Additional medical history: anemia, anxiety Psychiatric history: anxiety - Past Surgical History Surgical History: hysterectomy Additional surgical history: CORRECTION OF HALLUX ABDUCTOVALGUS DEFORMITY, partial hysterectomy (patient still has ovaries). - Social History Smoking Status: Never smoker Smokeless Tobacco Status: No Alcohol use: rarely Drug use: none - Family History Mother Adopted: No Living Status: Still Living Hx Family Cardiac Disorders: No Hx Family Respiratory Disorders: No Hx Family Cancer: No Hx Family GI Disorders: No Hx Family Endocrine Disorder: No Hx Family Neuromuscular Disorders: No Hx Family Neurologic Disorders: No Hx Family HEENT Disorders: No Hx Family Autoimmune Disorders: No Internal Medicine - H&P: Meds Gabapentin [Neurontin] 600 mg PO BID 03/15/16 [History] lamoTRIgine [Lamictal] 200 mg PO BID 03/15/16 [History] Dexmethylphenidate HCl [Dexmethylphenidate HCl ER] 25 mg PO DAILY 05/25/17 [History] SUMAtriptan succinate [Imitrex] 50 mg PO Q2H PRN 05/25/17 [History] Cholecalciferol (D-3) [Vitamin D] 1,000 unit PO DAILY 10/13/18 [History] Ibuprofen [Ibu] 600 mg PO TID PRN 10/13/18 [History] hydrOXYzine HCl [Hydroxyzine HCl] 25 mg PO TID 10/13/18 [History] Allergy/AdvReac Type Severity Reaction Status Date / Time cefdinir AdvReac Itching Verified 10/24/18 09:45 codeine AdvReac Itching Verified 05/25/17 09:38 prochlorperazine AdvReac See Verified 05/25/17 09:38 Comments All Systems PM: A 10-system review of systems was performed and is negative for pertinent findings except as documented above in the HPI. - Constitutional Constitutional: no chills, no fever(s), no night sweats - EENT Eyes: no change in vision, no discharge, no pain, no photophobia Ears: no ear discharge, no ear pain, no tinnitus Nose, mouth and throat: no dysphagia, no nasal discharge, no neck pain, no sore throat - Cardiovascular Cardiovascular ROS IM: no chest pain, no diaphoresis, no dyspnea, no lightheadedness, no palpitations, no syncope - Respiratory Respiratory: no cough, no dyspnea, no wheezing, no excessive phlegm production - Gastrointestinal Gastrointestinal: no abdominal pain, no diarrhea, no hematemesis, no hematochezia, no melena, no nausea, no vomiting - Genitourinary Genitourinary: no change in urinary stream, no dysuria, no flank pain, no hematuria - Musculoskeletal Musculoskeletal ROS IM: no numbness, no tingling - Integumentary Integumentary IM: no rash, no unusual bruising - Neurological Neurological ROS: no confusion, no convulsions, no focal weakness, no numbness, no tingling, no tremor(s) - Hematologic/Lymphatic Hematologic/Lymphatic: no easy bruising - Constitutional Vitals: Temp Pulse Resp BP Pulse Ox 98.2 F 62 14 134/77 98 05/10/19 23:34 05/10/19 23:34 05/10/19 23:34 05/10/19 23:34 08/03/19 23:34 Exam: General: Alert and oriented 3 Skin:Normal color, no rash, no lesions. HEENT:EOM, pupils equal, round and reactive. Cardiovascular:Normal S1 & S2, no rubs, murmurs or gallops. No JVD. Pulse regular. Lungs:Normal breath sounds, no wheezes or crackles. Abdomen:Soft, non-tender, no rigidity. Left-sided CVA tenderness Extremities:No deformity, no edema or tenderness, no joint swelling or clubbing. Neurological:Normal cognition and motor skills. Pulses:Carotid and radial pulses normal +2. Rest of the physical exam is non contributory Internal Med - H&P Results - Labs CBC & Chem 7: 05/10/19 19:19 05/10/19 19:19 Labs: Short CBC 05/10/19 Range/Units 19:19 WBC 8.0 (4.3-11.1) K/mcL Hgb 12.2 (11.5-15.4) g/dL Hct 36.6 (35.3-44.9) % Plt Count 330 (140-400) K/mcL Neutrophils # 4.4 (1.6-8.9) K/mcL BMP 05/10/19 19:19 Sodium 136 Potassium 3.8 Chloride 104 Carbon Dioxide 25 BUN 19 Creatinine 0.95 Glucose 88 Calcium 9.8 Urine 05/10/19 Range/Units 19:00 Urine Color Yellow (Yellow) Urine Clarity Cloudy A (Clear) Urine pH 6.0 (5.0-8.0) pH Units Ur Specific [place] 1.013 (1.010-1.025) Urine Protein Negative (Neg-Trace) mg/dL Urine Glucose (UA) Normal (Normal) mg/dL - Impressions ITS Impressions Abdomen/Pelvis CT 05/10/19 19:07 IMPRESSION: Too numerous to count renal calculi bilaterally without hydronephrosis. Low-density renal lesions are stable No acute abnormality otherwise noted in the abdomen or pelvis. Stable 3 mm lingular nodule. This is stable compared to an exam from 2016 as well. Given its stability, this is likely benign. No follow-up imaging is recommended D/ / Kushal Price / Kushal Price Interpreting Provider: Kushal Price - Assessment and Plan (1) UTI (urinary tract infection) Current Visit: Yes Status: Acute Assessment and plan: UA showing moderate leukocyte esterase. CT scan shows thickening of the bladder wall. No evidence of pyelonephritis on imaging. -Continue ceftriaxone -Follow-up urine culture Qualifiers: Urinary tract infection type: acute cystitis Qualified Code(s): N30.00 - Acute cystitis without hematuria (2) Renal calculus, bilateral Current Visit: Yes Status: Acute Assessment and plan: CT scan of the abdomen and pelvis shows too numerous to count renal calculi bilaterally without hydronephrosis. Extensive history of nephrolithiasis. Complaining of left-sided flank pain. No evidence of an obstructing ureteral stone or Hydronephrosis -Case discussed with Dr. Nogueira who will evaluate the patient in the morning -Continue supportive fluids -Continue pain control as needed (3) DVT prophylaxis Current Visit: No Status: Acute - Time Spent With Patient Total time spent is greater than 50% in coordination of care (as documented) at patient's floor/unit and/or counseling patient:
[2019-05-11] MEDS: *HR* Heparin 5,000 UNIT/ML VIAL SQ SCH ×3 (04:59→21:20)
[2019-05-11] MEDS: *HR* HYDROmorphone 2 MG TABLET PO PRN ×4 (05:00→20:24)
[2019-05-11] MEDS: hydrOXYzine pamoate 25 MG CAPSULE PO SCH ×3 (08:19→21:18)
[2019-05-11] MEDS: Cholecalciferol (D-3) 1,000 UNIT (25MCG) TABLET PO SCH (08:19)
[2019-05-11] MEDS: Gabapentin 300 MG CAPSULE PO SCH ×2 (08:19→21:19)
[2019-05-11] MEDS: lamoTRIgine 100 MG TABLET PO SCH ×2 (08:19→21:18)
[2019-05-11] MEDS: DEXMETHYLPHENIDATE HCL PO SCH (08:21)
[2019-05-11 10:29] LABS: Hematocrit 33.5 % (35.3-44.9); Mean Corpuscular HGB Conc 32.8 g/dL (31.6-35.5); Mean Corpuscular Hemoglobin 29.5 pg (28.0-33.3); Mean Corpuscular Volume 89.8 fL (83.0-100.0); Mean Platelet Volume 9.8 fL (9.4-12.4); Platelet Count 289 K/mcL (140-400); Red Blood Count 3.73 M/mcL (3.82-4.97); Red Cell Distribution Width 14.6 % (11.5-14.5); White Blood Count 6.2 K/mcL (4.3-11.1)
[2019-05-11 10:40] LABS: INR 0.9; Prothrombin Time 10.4 Seconds (9.4-12.1)
[2019-05-11 10:42] LABS: Activated Partial Thrombo Time 23.3 Seconds (26.0-36.0)
[2019-05-11 10:48] LABS: BUN/Creatinine Ratio 20 (6-26); Blood Urea Nitrogen 18 mg/dL (6-20); Calcium 9.4 mg/dL (8.6-10.3); Carbon Dioxide 23 mEq/L (23-29); Chloride 108 mEq/L (98-107); Glucose 91 mg/dL (70-105); Osmolality,Calculated 287 (280-300); Potassium 4.2 mEq/L (3.5-5.1); Sodium 138 mEq/L (136-145); eGFR For African Americans > 60 (> 60); eGFR For Non-African Americans > 60 (> 60)
--- NOTE | 2019-05-11 11:04 | Event Note ---
Date of Encounter: 05/11/19 Time of Encounter: 08:15 H&P reviewed. Patient with known history of nephrolithiasis is admitted for left greater than right flank pain. Urinalysis +ve for mod amount of LE and bacteria. CT however did not show any obstructive uropathy, but she does have numberous renal calculi. Discussed with Urology, will continue IV abx, IVF, and flomax. If symptoms persiste, may consider diagnostic ureteroscopy.
[2019-05-11] MEDS: Ondansetron 4 MG/2 ML VIAL IVP PRN (19:23)
[2019-05-11] MEDS: cefTRIAXone 1,000 MG in Water for inj. (sterile) 10 ML IVPB SCH (21:20)
[2019-05-12] MEDS: *HR* HYDROmorphone 2 MG TABLET PO PRN ×4 (02:52→18:51)
[2019-05-12] MEDS: *HR* Heparin 5,000 UNIT/ML VIAL SQ SCH ×3 (05:26→21:22)
[2019-05-12 05:42] LABS: Basophils % 0.3 %; Eosinophils # 0.5 K/mcL (0.0-0.6); Eosinophils % 7.5 %; Hematocrit 36.1 % (35.3-44.9); Hemoglobin 11.6 g/dL (11.5-15.4); Immature Granulocytes % 0.3 % (0-4); Lymphocytes % 50.2 %; Mean Corpuscular HGB Conc 32.1 g/dL (31.6-35.5); Mean Corpuscular Hemoglobin 28.6 pg (28.0-33.3); Mean Corpuscular Volume 89.1 fL (83.0-100.0); Monocytes # 0.6 K/mcL (0.0-1.3); Monocytes % 8.9 %; Neutrophils # 2.3 K/mcL (1.6-8.9); Platelet Count 214 K/mcL (140-400); Red Blood Count 4.05 M/mcL (3.82-4.97); Red Cell Distribution Width 14.6 % (11.5-14.5); Segmented Neutrophils % 32.8 %; White Blood Count 7.1 K/mcL (4.3-11.1)
[2019-05-12 06:03] LABS: BUN/Creatinine Ratio 24 (6-26); Blood Urea Nitrogen 25 mg/dL (6-20); Carbon Dioxide 23 mEq/L (23-29); Chloride 104 mEq/L (98-107); Glucose 83 mg/dL (70-105); Osmolality,Calculated 290 (280-300); Potassium 4.8 mEq/L (3.5-5.1); Sodium 138 mEq/L (136-145); eGFR For African Americans > 60 (> 60); eGFR For Non-African Americans 55 (> 60)
[2019-05-12 06:31] LABS: Lymphocytes # 3.6 K/mcL (0.6-4.6)
[2019-05-12 06:32] LABS: Platelet Estimate Normal (Normal)
[2019-05-12] MEDS: Gabapentin 300 MG CAPSULE PO SCH ×2 (09:21→21:14)
[2019-05-12] MEDS: Cholecalciferol (D-3) 1,000 UNIT (25MCG) TABLET PO SCH (09:21)
[2019-05-12] MEDS: hydrOXYzine pamoate 25 MG CAPSULE PO SCH ×3 (09:21→21:13)
--- NOTE | 2019-05-12 09:21 | Urology - Consult Note ---
<Raven Calvo N - Last Filed: 05/12/19 09:18> Date of Encounter: 05/12/19 Time of Encounter: 08:20 - Assessment and Plan (1) Flank pain Current Visit: Yes Status: Acute (2) Renal calculus, bilateral Current Visit: Yes Status: Acute Assessment and plan: Patient is a 53-year-old female who presents with bilateral, punctate, nonobstructing nephrolithiasis. After reviewing CT scan, there is no evidence suggesting ureteral obstruction or hydronephrosis. We will plan to manage patient conservatively with IV fluids, pain control and await urine culture. Vital signs are stable and afebrile. White blood cell count and renal function are reassuring. Urology CN:HPI Consult date: 05/12/19 Reason for consult Urology: Other (nephrolithiasis, flank pain, complicated UTI) Requesting physician: Ellis Crum History of present illness: Patient is a 53-year-old female who presents with bilateral, nonobstructive nephrolithiasis, left flank pain, and possible UTI. Patient reports a 2 week history of intermittent left flank pain, but patient states pain acutely worsened over the last 2 days. Patient presented to the emergency department where she underwent a CT of the abdomen and pelvis revealing bilateral, punctate, nonobstructing nephrolithiasis without hydronephrosis or evidence of obstruction. Patient states pain is accompanied with nausea, vomiting, dysuria, hesitancy and gross hematuria. Patient denies any recent history of urinary tract infection and states the last UTI she can remember was approximately 10 years ago. Patient has a history of nephrocalcinosis and is well-known to our service. She has undergone ureteroscopy by both Dr. Luevano and Dr. Jean. She admits to a family history of renal stones through her father. Currently, patient is sitting upright in bed in no apparent distress, and she reports voiding without difficulty. She denies any fever, chills, urgency, frequency or incontinence. Past Med Surg Social Fam HX - Past Medical History Medical history: hyperlipidemia, kidney stones, other Additional medical history: anemia, anxiety Psychiatric history: anxiety - Past Surgical History Surgical History: hysterectomy Additional surgical history: CORRECTION OF HALLUX ABDUCTOVALGUS DEFORMITY, partial hysterectomy (patient still has ovaries). - Social History Smoking Status: Never smoker Smokeless Tobacco Status: No Alcohol use: rarely Drug use: none - Family History Mother Adopted: No Living Status: Still Living Hx Family Cardiac Disorders: No Hx Family Respiratory Disorders: No Hx Family Cancer: No Hx Family GI Disorders: No Hx Family Endocrine Disorder: No Hx Family Neuromuscular Disorders: No Hx Family Neurologic Disorders: No Hx Family HEENT Disorders: No Hx Family Autoimmune Disorders: No Medications and Allergies Gabapentin [Neurontin] 600 mg PO BID PRN 03/15/16 [History] lamoTRIgine [Lamictal] 200 mg PO BID 03/15/16 [History] Dexmethylphenidate HCl [Dexmethylphenidate HCl ER] 25 mg PO DAILY 05/25/17 [History] SUMAtriptan succinate [Imitrex] 50 mg PO Q2H PRN 05/25/17 [History] Cholecalciferol (D-3) [Vitamin D] 1,000 unit PO DAILY 10/13/18 [History] Ibuprofen [Ibu] 600 mg PO TID PRN 10/13/18 [History] hydrOXYzine HCl [Hydroxyzine HCl] 25 mg PO TID 10/13/18 [History] Allergy/AdvReac Type Severity Reaction Status Date / Time prochlorperazine AdvReac See Verified 05/12/19 11:58 Comments Review of Systems - Constitutional chills, fatigue, no fever(s) - EENT Nose, mouth and throat: no dizziness, no headache(s) - Cardiovascular no chest pain, no diaphoresis, no dyspnea - Respiratory no cough, no dyspnea - Gastrointestinal abdominal pain, nausea, vomiting - Genitourinary Genitourinary: dysuria, flank pain, hematuria, urinary hesitancy, no difficulty urinating, no urinary frequency, no urinary incontinence, no urinary urgency - Musculoskeletal back pain, no muscle weakness - Integumentary no erythema, no rash - Neurological no confusion - Psychiatric no anxiety, no confusion - Hematologic/Lymphatic no easy bleeding, no easy bruising - Allergic/Immunologic no throat swelling, no wheezing Exam Initial Vital Signs Temp Pulse Resp BP Pulse Ox 97.4 F L 91 16 156/98 99 05/10/19 18:39 05/10/19 18:39 05/10/19 18:39 05/10/19 18:39 05/10/19 18:39 - General physical appearance Present: no distress, no pain - Eyes Present: PERRL, normal ocular movement - ENT Present: normal nares, no hearing loss, no congestion - Neck Present: no masses, trachea midline, no lymphadenopathy - Respiratory Present: normal respiratory effort - Cardiovascular Cardiovascular exam IM: RRR - Abdomen Abdomen: Present: soft, non tender. Absent: distended - Genitourinary Present: other (no CVAT) - Integumentary Present: no rash, no abnormal pigmentation - Neurologic Present: normal coordination - Musculoskeletal Present: other (normal posture ) Urology Results - Labs 05/12/19 05:19 05/12/19 05:19 Abnormal lab results RBC 3.73 M/mcL (3.82-4.97) L 05/11/19 10:10 Hgb 11.0 g/dL (11.5-15.4) L 05/11/19 10:10 Hct 33.5 % (35.3-44.9) L 05/11/19 10:10 RDW 14.6 % (11.5-14.5) H 05/12/19 05:19 APTT 23.3 Seconds (26.0-36.0) L 05/11/19 10:10 Chloride 108 mEq/L (98-107) H 05/11/19 10:10 BUN 25 mg/dL (6-20) H 05/12/19 05:19 Est GFR (Non-Af Amer) 55 (> 60) L 05/12/19 05:19 Urine Clarity Cloudy (Clear) A 05/10/19 19:00 Ur Leukocyte Esterase Moderate (Negative) H 05/10/19 19:00 Urine Microscopic WBC 30-50 per hpf (0-3) H 05/10/19 19:00 Ur Squamous Epith Cells Many per lpf (None-Few) H 05/10/19 19:00 Ur Culture Indicated? YES (NO) A 05/10/19 19:00 Diabetes panel 05/11/19 05/12/19 Range/Units 10:10 05:19 Sodium 138 138 (136-145) mEq/L Potassium 4.2 4.8 (3.5-5.1) mEq/L Chloride 108 H 104 (98-107) mEq/L Carbon Dioxide 23 23 (23-29) mEq/L BUN 18 25 H (6-20) mg/dL Creatinine 0.88 1.05 (0.60-1.20) mg/dL Glucose 91 83 (70-105) mg/dL Calcium 9.4 10.0 (8.6-10.3) mg/dL Calcium panel 05/11/19 05/12/19 Range/Units 10:10 05:19 Calcium 9.4 10.0 (8.6-10.3) mg/dL Pituitary panel 05/11/19 05/12/19 Range/Units 10:10 05:19 Sodium 138 138 (136-145) mEq/L Potassium 4.2 4.8 (3.5-5.1) mEq/L Chloride 108 H 104 (98-107) mEq/L Carbon Dioxide 23 23 (23-29) mEq/L BUN 18 25 H (6-20) mg/dL Creatinine 0.88 1.05 (0.60-1.20) mg/dL Glucose 91 83 (70-105) mg/dL Calcium 9.4 10.0 (8.6-10.3) mg/dL Adrenal panel 05/11/19 05/12/19 Range/Units 10:10 05:19 Sodium 138 138 (136-145) mEq/L Potassium 4.2 4.8 (3.5-5.1) mEq/L Chloride 108 H 104 (98-107) mEq/L Carbon Dioxide 23 23 (23-29) mEq/L BUN 18 25 H (6-20) mg/dL Creatinine 0.88 1.05 (0.60-1.20) mg/dL Glucose 91 83 (70-105) mg/dL Calcium 9.4 10.0 (8.6-10.3) mg/dL All other labs normal. - Imaging CT scan - abdomen: report reviewed, image reviewed CT scan - pelvis: report reviewed, image reviewed Consult Discharge Plan - Plan Referrals: Gunjan Martinez DO [Primary Care Provider] - <Raymond Jean - Last Filed: 05/12/19 15:34> Date of Encounter: 05/12/19 Urology CN:HPI History of present illness: Patient was seen and examined independently. I agree with the plan as written by Raven Calvo. Patient with CT scan showing bilateral nonobstructing intrarenal calculi. Patient's pain out of proportion of current situation. Patient taking large quantities of narcotics. Awaiting urine culture at this time. No urgent intervention indicated at this time. We will continue to follow along expectation the patient can be discharged tomorrow as long as urine culture negative. Exam Initial Vital Signs Temp Pulse Resp BP Pulse Ox 97.4 F L 91 16 156/98 99 05/10/19 18:39 05/10/19 18:39 05/10/19 18:39 05/10/19 18:39 05/10/19 18:39 Urology Results - Labs 05/12/19 05:19 05/12/19 05:19 Abnormal lab results RBC 3.73 M/mcL (3.82-4.97) L 05/11/19 10:10 Hgb 11.0 g/dL (11.5-15.4) L 05/11/19 10:10 Hct 33.5 % (35.3-44.9) L 05/11/19 10:10 RDW 14.6 % (11.5-14.5) H 05/12/19 05:19 APTT 23.3 Seconds (26.0-36.0) L 05/11/19 10:10 Chloride 108 mEq/L (98-107) H 05/11/19 10:10 BUN 25 mg/dL (6-20) H 05/12/19 05:19 Est GFR (Non-Af Amer) 55 (> 60) L 05/12/19 05:19 Urine Clarity Cloudy (Clear) A 05/10/19 19:00 Ur Leukocyte Esterase Moderate (Negative) H 05/10/19 19:00 Urine Microscopic WBC 30-50 per hpf (0-3) H 05/10/19 19:00 Ur Squamous Epith Cells Many per lpf (None-Few) H 05/10/19 19:00 Ur Culture Indicated? YES (NO) A 05/10/19 19:00 Diabetes panel 05/12/19 Range/Units 05:19 Sodium 138 (136-145) mEq/L Potassium 4.8 (3.5-5.1) mEq/L Chloride 104 (98-107) mEq/L Carbon Dioxide 23 (23-29) mEq/L BUN 25 H (6-20) mg/dL Creatinine 1.05 (0.60-1.20) mg/dL Glucose 83 (70-105) mg/dL Calcium 10.0 (8.6-10.3) mg/dL Calcium panel 05/12/19 Range/Units 05:19 Calcium 10.0 (8.6-10.3) mg/dL Pituitary panel 05/12/19 Range/Units 05:19 Sodium 138 (136-145) mEq/L Potassium 4.8 (3.5-5.1) mEq/L Chloride 104 (98-107) mEq/L Carbon Dioxide 23 (23-29) mEq/L BUN 25 H (6-20) mg/dL Creatinine 1.05 (0.60-1.20) mg/dL Glucose 83 (70-105) mg/dL Calcium 10.0 (8.6-10.3) mg/dL Adrenal panel 05/12/19 Range/Units 05:19 Sodium 138 (136-145) mEq/L Potassium 4.8 (3.5-5.1) mEq/L Chloride 104 (98-107) mEq/L Carbon Dioxide 23 (23-29) mEq/L BUN 25 H (6-20) mg/dL Creatinine 1.05 (0.60-1.20) mg/dL Glucose 83 (70-105) mg/dL Calcium 10.0 (8.6-10.3) mg/dL All other labs normal.
[2019-05-12] MEDS: lamoTRIgine 100 MG TABLET PO SCH ×2 (09:22→21:14)
[2019-05-12] MEDS: DEXMETHYLPHENIDATE HCL PO SCH (09:22)
[2019-05-12] MEDS: Ringers Solution, Lactated 1,000 ML IVC SCH ×2 (11:07→23:58)
--- NOTE | 2019-05-12 11:38 | Internal Med Progress Note ---
Hospitalist Progress Note - Encounter Date of Encounter: 05/12/19 Time of Encounter: 09:45 - Subjective Interval History: Continues to complain of L > R flank pain. No fever observed overnight. Did not pass any stone yesterday. No N/V - Exam Vitals: Temp Pulse Resp BP Pulse Ox 97.7 F 69 17 132/79 97 05/12/19 07:08 05/12/19 07:08 05/12/19 07:08 05/12/19 07:08 05/12/19 07:08 Exam: General: Alert and oriented 3, mild distress due to discomfort Cardiovascular:Normal S1 & S2, no rubs, murmurs or gallops. No JVD. Pulse regular. Lungs:Normal breath sounds, no wheezes or crackles. Abdomen:Soft, non-tender, no rigidity. : Left-sided CVA tenderness +ve Extremities:No deformity, no edema or tenderness, no joint swelling or clubbing. - Assessment and Plan (1) UTI (urinary tract infection) Current Visit: Yes Status: Acute Assessment and Plan: given her L CVA tenderness, urinalysis finding, and numerous renal calculi, will treat as complicated UTI however, pt does not have any fever or leukocytosis. CT did not show any obstructive uropathy as well. Urine culture -ve. discussed with Urology, would monitor her today on IV Abx, IVF, and flomax. (2) Renal calculus, bilateral Current Visit: Yes Status: Acute Assessment and Plan: as above, not associated with obstructive uropathy (3) DVT prophylaxis Current Visit: No Status: Acute Assessment and Plan: SQ hep - Time Spent with Patient Total time spent is greater than 50% in coordination of care (as documented) at patient's floor/unit and/or counseling patient: 25 - 35 minutes Plan of Care Discussed with: patient (discussed with pt's significant other and Urology) Internal Medicine: Result - Labs CBC & Chem 7: 05/12/19 05:19 05/12/19 05:19 Labs: Short CBC 05/12/19 Range/Units 05:19 WBC 7.1 (4.3-11.1) K/mcL Hgb 11.6 (11.5-15.4) g/dL Hct 36.1 (35.3-44.9) % Plt Count 214 (140-400) K/mcL Neutrophils # 2.3 (1.6-8.9) K/mcL BMP 05/12/19 05:19 Sodium 138 Potassium 4.8 Chloride 104 Carbon Dioxide 23 BUN 25 H Creatinine 1.05 Glucose 83 Calcium 10.0 - ABG Interpretation ABG results: PT/INR, D-dimer PT 10.4 Seconds (9.4-12.1) 05/11/19 10:10 Consult Discharge Plan - Plan Referrals: Gunjan Martinez, [Primary Care Provider] - (1) UTI (urinary tract infection) Qualifiers: Urinary tract infection type: site unspecified Hematuria presence: without hematuria Qualified Code(s): N39.0 - Urinary tract infection, site not specified
[2019-05-12] MEDS: Ondansetron 4 MG/2 ML VIAL IVP PRN (18:55)
[2019-05-12] MEDS: cefTRIAXone 1,000 MG in Water for inj. (sterile) 10 ML IVPB SCH (21:15)
[2019-05-12] MEDS ORDERED: *HR* HYDROmorphone 2 MG TABLET PO PRN ×2 (23:45→23:48)
[2019-05-12] MEDS: *HR* HYDROcodone/Acet 5/325 mg TABLET PO PRN (23:56)
[2019-05-13 03:32] LABS: Basophils % 0.4 %; Eosinophils # 0.5 K/mcL (0.0-0.6); Eosinophils % 6.6 %; Hematocrit 32.8 % (35.3-44.9); Hemoglobin 10.8 g/dL (11.5-15.4); Immature Granulocytes % 0.1 % (0-4); Lymphocytes # 3.1 K/mcL (0.6-4.6); Lymphocytes % 43.9 %; Mean Corpuscular HGB Conc 32.9 g/dL (31.6-35.5); Mean Corpuscular Hemoglobin 29.1 pg (28.0-33.3); Mean Corpuscular Volume 88.4 fL (83.0-100.0); Mean Platelet Volume 9.9 fL (9.4-12.4); Monocytes # 0.6 K/mcL (0.0-1.3); Monocytes % 8.3 %; Neutrophils # 2.9 K/mcL (1.6-8.9); Platelet Count 295 K/mcL (140-400); Red Blood Count 3.71 M/mcL (3.82-4.97); Red Cell Distribution Width 14.1 % (11.5-14.5); Segmented Neutrophils % 40.7 %; White Blood Count 7.1 K/mcL (4.3-11.1)
[2019-05-13 03:44] LABS: BUN/Creatinine Ratio 23 (6-26); Blood Urea Nitrogen 21 mg/dL (6-20); Calcium 9.7 mg/dL (8.6-10.3); Carbon Dioxide 30 mEq/L (23-29); Chloride 104 mEq/L (98-107); Glucose 91 mg/dL (70-105); Osmolality,Calculated 291 (280-300); Potassium 4.5 mEq/L (3.5-5.1); Sodium 139 mEq/L (136-145); eGFR For African Americans > 60 (> 60); eGFR For Non-African Americans > 60 (> 60)
[2019-05-13] MEDS: *HR* Heparin 5,000 UNIT/ML VIAL SQ SCH (04:53)
[2019-05-13 06:39] VITALS: BP 138/82
[2019-05-13] MEDS: *HR* HYDROcodone/Acet 5/325 mg TABLET PO PRN (06:51)
--- NOTE | 2019-05-13 07:20 | Urology Progress Note ---
Date of Encounter: 05/13/19 Time of Encounter: 07:19 - Assessment and Plan (1) Renal calculus, bilateral Current Visit: Yes Status: Acute Assessment and plan: Patient with nonobstructing bilateral stones. Pain has improved. Okay to discharge from urology standpoint. Patient is to complete her 24-hour urine which she already has at home and we will make follow-up based on those results. Progress Note Narrative: Patient seen this morning. Patient feeling better. Urinalysis negative for infection Objective Initial Vital Signs Temp Pulse Resp BP Pulse Ox 97.4 F L 91 16 156/98 99 05/10/19 18:39 05/10/19 18:39 05/10/19 18:39 05/10/19 18:39 05/10/19 18:39 - General physical appearance Present: well developed, well nourished - Abdomen Present: soft. Absent: tender - Integumentary Present: no rash - Labs 05/13/19 03:05 05/13/19 03:05 Diabetes panel 05/13/19 Range/Units 03:05 Sodium 139 (136-145) mEq/L Potassium 4.5 (3.5-5.1) mEq/L Chloride 104 (98-107) mEq/L Carbon Dioxide 30 H (23-29) mEq/L BUN 21 H (6-20) mg/dL Creatinine 0.91 (0.60-1.20) mg/dL Glucose 91 (70-105) mg/dL Calcium 9.7 (8.6-10.3) mg/dL Calcium panel 05/13/19 Range/Units 03:05 Calcium 9.7 (8.6-10.3) mg/dL Pituitary panel 05/13/19 Range/Units 03:05 Sodium 139 (136-145) mEq/L Potassium 4.5 (3.5-5.1) mEq/L Chloride 104 (98-107) mEq/L Carbon Dioxide 30 H (23-29) mEq/L BUN 21 H (6-20) mg/dL Creatinine 0.91 (0.60-1.20) mg/dL Glucose 91 (70-105) mg/dL Calcium 9.7 (8.6-10.3) mg/dL Adrenal panel 05/13/19 Range/Units 03:05 Sodium 139 (136-145) mEq/L Potassium 4.5 (3.5-5.1) mEq/L Chloride 104 (98-107) mEq/L Carbon Dioxide 30 H (23-29) mEq/L BUN 21 H (6-20) mg/dL Creatinine 0.91 (0.60-1.20) mg/dL Glucose 91 (70-105) mg/dL Calcium 9.7 (8.6-10.3) mg/dL Consult Discharge Plan - Plan Referrals: Gunjan Martinez, [Primary Care Provider] -
[2019-05-13] MEDS: hydrOXYzine pamoate 25 MG CAPSULE PO SCH (08:12)
[2019-05-13] MEDS: Gabapentin 300 MG CAPSULE PO SCH (08:12)
[2019-05-13] MEDS: lamoTRIgine 100 MG TABLET PO SCH (08:13)
[2019-05-13] MEDS: Cholecalciferol (D-3) 1,000 UNIT (25MCG) TABLET PO SCH (08:13)
[2019-05-13] MEDS: DEXMETHYLPHENIDATE HCL PO SCH (08:37)
--- NOTE | 2019-05-13 09:22 | Discharge Summary ---
- NOTES TO OUTPATIENT PROVIDER Notes to Outpatient Provider: Follow-up with urology as outpatient Date of Encounter: 05/13/19 Time of Encounter: 07:30 - Discharge Diagnosis (1) UTI (urinary tract infection) Priority: Primary Status: Acute Qualifiers: Urinary tract infection type: site unspecified Hematuria presence: without hematuria Qualified Code(s): N39.0 - Urinary tract infection, site not specified (2) Renal calculus, bilateral Priority: Secondary Status: Acute (3) DVT prophylaxis Priority: Secondary Status: Acute Hospital course: Ms. Baltazar is a 53 year old female with known history of nephrolithiasis who was admitted for symptomatic nephrolithiasis and possible complicated UTI. Although she did not have any fever, leukocytosis, obstructive uropathy, or OLIVER, she did have moderate amount of leukocyte esterase and pyuria. Urine culture was -ve. Managed in consultation with urology and given the lack of hydronephrosis despite having numerous renal calculi, she was managed conservatively with clinical improvement. She will be discharged on Flomax, a total 10 days of antibiotics, and with close urology follow-up. Discharge discussed with: patient, family, nurse, oracle consultant - Time Spent with Patient Total time spent providing and/or coordinating discharge services: 31 mins - Discharge Medications Prescriptions: New Tamsulosin [Flomax] 0.4 mg PO DAILY #30 capsule HYDROcodone/Acet 10/325 mg [[place] 10-325 mg] 1 tab PO Q6HR PRN 3 Days #12 tab PRN Reason: Pain Cefdinir [Omnicef] 300 mg PO BID #14 capsule Continued lamoTRIgine [Lamictal] 200 mg PO BID Gabapentin [Neurontin] 600 mg PO BID PRN PRN Reason: Pain SUMAtriptan succinate [Imitrex] 50 mg PO Q2H PRN PRN Reason: Migraine Headache Dexmethylphenidate HCl [Dexmethylphenidate HCl ER] 25 mg PO DAILY Cholecalciferol (D-3) [Vitamin D] 1,000 unit PO DAILY hydrOXYzine HCl [Hydroxyzine HCl] 25 mg PO TID Ibuprofen [Ibu] 600 mg PO TID PRN PRN Reason: Pain Home Medications: Gabapentin [Neurontin] 600 mg PO BID PRN 03/15/16 [History] lamoTRIgine [Lamictal] 200 mg PO BID 03/15/16 [History] Dexmethylphenidate HCl [Dexmethylphenidate HCl ER] 25 mg PO DAILY 05/25/17 [History] SUMAtriptan succinate [Imitrex] 50 mg PO Q2H PRN 05/25/17 [History] Cholecalciferol (D-3) [Vitamin D] 1,000 unit PO DAILY 10/13/18 [History] Ibuprofen [Ibu] 600 mg PO TID PRN 10/13/18 [History] hydrOXYzine HCl [Hydroxyzine HCl] 25 mg PO TID 10/13/18 [History] Cefdinir [Omnicef] 300 mg PO BID #14 capsule 05/13/19 [Rx] HYDROcodone/Acet 10/325 mg [[place] 10-325 mg] 1 tab PO Q6HR PRN 3 Days #12 tab 05/13/19 [Rx] Tamsulosin [Flomax] 0.4 mg PO DAILY #30 capsule 05/13/19 [Rx] Allergies/Adverse Reactions: Allergy/AdvReac Type Severity Reaction Status Date / Time prochlorperazine AdvReac See Verified 05/12/19 11:58 Comments Date of admission: 05/10/19 22:39 Primary care physician: Gunjan Acosta Consults: 05/11/19 08:00 Consult to Urology [CONS] Routine Consulting Provider: Urology Amy Reason for Consult: nephrolithiasis, complicated UTI Call Completed: Yes 05/12/19 14:28 Consult to Invasive Line Access Team [CONS] Routine Reason for Consult: No IV access, patient hard to find any veins on Line Type: EPIV - Constitutional Vitals: Temp Pulse Resp BP Pulse Ox 97.5 F L 71 17 138/82 98 05/13/19 06:38 05/13/19 06:38 05/13/19 06:38 05/13/19 06:38 05/13/19 06:38 Exam: General: Alert and oriented 3, not in distress Cardiovascular:Normal S1 & S2, no rubs, murmurs or gallops. No JVD. Pulse regular. Lungs:Normal breath sounds, no wheezes or crackles. Abdomen:Soft, non-tender, no rigidity. : Left-sided CVA tenderness +ve, less significant than yesterday Extremities:No deformity, no edema or tenderness, no joint swelling or clubbing. - Patient Status Disposition: Home, Self-Care Condition: Good Functional capacity at discharge: independent ambulation Overall status at discharge: patient is progressing back to baseline - Discharge Instructions Instructions: Urinary Tract Infection in Women (DC) Follow Up With: Gunjan Martinez DO [Primary Care Provider] - Raymond Jean MD [Partnered Physician] - - Diet and Activity Activity: resume usual activities as tolerated Diet: regular diet
[2019-05-13] MEDS: Ringers Solution, Lactated 1,000 ML IVC SCH (10:10)
== END 2019-05-13 10:43 | disposition home or self-care (01) ==
LOC: EMEROOARM 18:37 → 3ANU 18:37 → SUATTDRO 22:39 → 3ANU 23:01
PROVIDERS: ADMIT Internal Medicine; ATTEND Internal Medicine

== ENCOUNTER 2019-09-09 18:12 | Observation (INO) ==
[2019-09-09 18:48] LABS: Bilirubin,Urine Negative (Negative); Blood,Urine Large (Negative); Clarity,Urine Cloudy (Clear); Color,Urine Yellow (Yellow); Glucose,Urine (UA) Normal (Normal); Ketones,Urine Negative (Negative); Leukocyte Esterase,Urine Moderate (Negative); Nitrite,Urine Negative (Negative); PH,Urine 6.5 pH Units (5.0-8.0); Protein,Urine 30 mg/dL (Neg-Trace); Specific Gravity,Urine 1.008 (1.010-1.025); Urobilinogen,Urine Normal (Normal)
[2019-09-09 18:51] LABS: Bacteria,Urine None Seen per hpf (None-Few); Hyaline Casts,Urine None Seen per lpf (None-Few); Squamous Epithelial Cell,Urine Many per lpf (None-Few)
[2019-09-09] MEDS ORDERED: Morphine Sulfate 2 MG/ML SYRINGE IVP ONE (19:13)
[2019-09-09] MEDS ORDERED: Ondansetron 4 MG/2 ML VIAL IVP ONE ×2 (19:13→21:11)
[2019-09-09 19:17] LABS: Yeast,Urine Moderate per hpf (None Seen)
[2019-09-09 19:19] LABS: Basophils % 0.4 %; Eosinophils # 0.1 K/mcL (0.0-0.6); Eosinophils % 1.3 %; Hematocrit 41.6 % (35.3-44.9); Hemoglobin 14.4 g/dL (11.5-15.4); Immature Granulocytes % 0.4 % (0-4); Lymphocytes # 2.4 K/mcL (0.6-4.6); Lymphocytes % 31.2 %; Mean Corpuscular HGB Conc 34.6 g/dL (31.6-35.5); Mean Corpuscular Hemoglobin 29.6 pg (28.0-33.3); Mean Corpuscular Volume 85.4 fL (83.0-100.0); Mean Platelet Volume 9.6 fL (9.4-12.4); Monocytes # 0.6 K/mcL (0.0-1.3); Monocytes % 7.1 %; Neutrophils # 4.6 K/mcL (1.6-8.9); Platelet Count 415 K/mcL (140-400); Red Blood Count 4.87 M/mcL (3.82-4.97); Red Cell Distribution Width 14.6 % (11.5-14.5); Segmented Neutrophils % 59.6 %; White Blood Count 7.7 K/mcL (4.3-11.1)
[2019-09-09 19:31] LABS: Alanine Aminotransferase 30 Units/L (7-52); Albumin 4.4 g/dL (3.5-5.7); Albumin/Globulin Ratio 1.5 (1.1-2.2); Alkaline Phosphatase 96 Units/L (34-104); Amylase 25 Units/L (29-103); Aspartate Amino Transferase 23 Units/L (13-39); BUN/Creatinine Ratio 18 (6-26); Bilirubin,Direct 0.1 mg/dL (0.0-0.2); Bilirubin,Indirect 0.2 mg/dL (0.0-1.0); Bilirubin,Total 0.3 mg/dL (0.3-1.0); Blood Urea Nitrogen 17 mg/dL (6-20); Calcium 10.3 mg/dL (8.6-10.3); Carbon Dioxide 23 mEq/L (23-29); Chloride 105 mEq/L (98-107); Glucose 95 mg/dL (70-105); Lipase 17 Units/L (11-82); Osmolality,Calculated 285 (280-300); Potassium 3.6 mEq/L (3.5-5.1); Sodium 137 mEq/L (136-145); Total Protein 7.4 g/dL (6.4-8.9); eGFR For African Americans > 60 (> 60); eGFR For Non-African Americans > 60 (> 60)
[2019-09-09] MEDS ORDERED: 0.9 % Sodium Chloride 1,000 ML IVC ONE (19:34)
[2019-09-09] MEDS ORDERED: *HR* HYDROmorphone (PF) 1 MG/ML SYRINGE IVP ONE (20:54)
[2019-09-09] MEDS ORDERED: Ketamine *HR* 500 MG/10 ML MDV IV ONE (21:33)
[2019-09-09] MEDS ORDERED: Ketamine *HR* 15 MG in 0.9 % Sodium Chloride 100 ML IVPB ONE (21:46)
[2019-09-09] MEDS ORDERED: *HR* FentaNYL (PF) 100 MCG/2 ML VIAL IVP ONE (23:04)
[2019-09-09] MEDS ORDERED: Ketorolac 15 MG/ML VIAL IVP ONE (23:05)
[2019-09-10] MEDS ORDERED: Ondansetron 4 MG/2 ML VIAL IVP PRN (02:55)
[2019-09-10] MEDS ORDERED: Naloxone 0.4 MG/ML INJ IVP PRN (02:55)
[2019-09-10] MEDS ORDERED: SUMAtriptan succinate 50 MG TABLET PO PRN (02:56)
[2019-09-10] MEDS ORDERED: Gabapentin 300 MG CAPSULE PO PRN (02:56)
[2019-09-10] MEDS ORDERED: 0.9 % Sodium Chloride 1,000 ML IVC SCH (03:00)
[2019-09-10] MEDS ORDERED: cefTRIAXone 1,000 MG in 0.9 % Sodium Chloride Mini Bag 100 ML IVPB ONE (03:22)
[2019-09-10] MEDS: Ketorolac 30 MG/ML VIAL IVP PRN ×3 (05:35→21:38)
[2019-09-10 05:58] LABS: Basophils % 0.5 %; Eosinophils # 0.3 K/mcL (0.0-0.6); Eosinophils % 3.2 %; Hematocrit 37.3 % (35.3-44.9); Immature Granulocytes % 0.1 % (0-4); Lymphocytes % 48.2 %; Mean Corpuscular Hemoglobin 29.3 pg (28.0-33.3); Mean Corpuscular Volume 85.9 fL (83.0-100.0); Mean Platelet Volume 9.7 fL (9.4-12.4); Monocytes # 0.6 K/mcL (0.0-1.3); Monocytes % 6.8 %; Neutrophils # 3.4 K/mcL (1.6-8.9); Platelet Count 357 K/mcL (140-400); Red Blood Count 4.34 M/mcL (3.82-4.97); Red Cell Distribution Width 14.6 % (11.5-14.5); Segmented Neutrophils % 41.2 %; White Blood Count 8.4 K/mcL (4.3-11.1)
[2019-09-10 06:03] LABS: Hemoglobin 12.7 g/dL (11.5-15.4)
[2019-09-10 06:18] LABS: Alanine Aminotransferase 24 Units/L (7-52); Albumin/Globulin Ratio 1.5 (1.1-2.2); Alkaline Phosphatase 91 Units/L (34-104); Aspartate Amino Transferase 21 Units/L (13-39); BUN/Creatinine Ratio 18 (6-26); Bilirubin,Total 0.4 mg/dL (0.3-1.0); Blood Urea Nitrogen 17 mg/dL (6-20); Calcium 9.6 mg/dL (8.6-10.3); Carbon Dioxide 21 mEq/L (23-29); Chloride 107 mEq/L (98-107); Globulin 2.6 g/dL (2.4-3.5); Glucose 96 mg/dL (70-105); Osmolality,Calculated 285 (280-300); Potassium 3.7 mEq/L (3.5-5.1); Sodium 137 mEq/L (136-145); Total Protein 6.6 g/dL (6.4-8.9); eGFR For African Americans > 60 (> 60); eGFR For Non-African Americans > 60 (> 60)
[2019-09-10] MEDS: Cholecalciferol (D-3) 1,000 UNIT (25MCG) TABLET PO SCH (10:26)
[2019-09-10] MEDS: hydrOXYzine pamoate 25 MG CAPSULE PO SCH ×3 (10:26→20:01)
[2019-09-10] MEDS: lamoTRIgine 100 MG TABLET PO SCH ×2 (10:26→20:01)
[2019-09-10] MEDS: DEXMETHYLPHENIDATE HCL PO SCH (10:26)
[2019-09-10] MEDS ORDERED: cefTRIAXone 1,000 MG in Water for inj. (sterile) 10 ML IVP SCH (21:00)
[2019-09-11] MEDS: Ketorolac 30 MG/ML VIAL IVP PRN ×3 (03:59→16:48)
[2019-09-11] MEDS: lamoTRIgine 100 MG TABLET PO SCH (08:11)
[2019-09-11] MEDS: Cholecalciferol (D-3) 1,000 UNIT (25MCG) TABLET PO SCH (08:11)
[2019-09-11] MEDS: hydrOXYzine pamoate 25 MG CAPSULE PO SCH ×2 (08:11→14:31)
[2019-09-11] MEDS: DEXMETHYLPHENIDATE HCL PO SCH (08:12)
[2019-09-11] MEDS ORDERED: Acetaminophen IV 1,000 MG/100 ML INFUS..BTL ONE (14:08)
[2019-09-11] MEDS ORDERED: Famotidine 20 MG/2 ML VIAL ONE (14:08)
[2019-09-11] MEDS ORDERED: *HR* FentaNYL (PF) 100 MCG/2 ML VIAL ONE (14:28)
[2019-09-11] MEDS ORDERED: Dexamethasone 4 MG/ML VIAL ONE (14:28)
[2019-09-11] MEDS ORDERED: Lidocaine -MPF 2% 2 ML VIAL ONE (14:28)
[2019-09-11] MEDS ORDERED: *HR* Midazolam HCl 2 MG/2 ML VIAL ONE (14:28)
[2019-09-11] MEDS ORDERED: *HR* Propofol 200 MG/20 ML VIAL IVP ONE (14:28)
[2019-09-11] MEDS ORDERED: Ondansetron 4 MG/2 ML VIAL ONE (14:28)
[2019-09-11] MEDS ORDERED: Isovue-300 50ML VIAL ONE (15:08)
[2019-09-11] MEDS ORDERED: EPHEDrine 50 MG/ML VIAL ONE (15:16)
[2019-09-11] MEDS ORDERED: *HR* Labetalol 20 MG/4 ML SYRINGE IVP PRN (16:05)
[2019-09-11] MEDS ORDERED: *HR* HYDROmorphone 2 MG TABLET PO PRN (16:05)
[2019-09-11] MEDS ORDERED: Dexamethasone 4 MG/ML VIAL IVP ONE (16:05)
[2019-09-11] MEDS: *HR* HYDROmorphone (PF) 1 MG/ML SYRINGE IVP PRN ×4 (16:14→16:47)
[2019-09-11] MEDS: *HR* OxyCODONE Immed Rel 5 MG TABLET PO PRN ×2 (16:22→16:28)
[2019-09-11] MEDS ORDERED: Ketorolac 15 MG/ML VIAL IM ONE (16:35)
[2019-09-11] MEDS ORDERED: Acetaminophen IV 1,000 MG/100 ML INFUS..BTL IVPB ONE (16:41)
[2019-09-11] MEDS: *HR* FentaNYL (PF) 100 MCG/2 ML VIAL IVP PRN ×4 (17:19→17:40)
[2019-09-11] MEDS ORDERED: SUMAtriptan succinate 50 MG TABLET PO PRN (18:30)
[2019-09-11] MEDS ORDERED: Gabapentin 300 MG CAPSULE PO PRN (18:30)
[2019-09-11] MEDS ORDERED: Ketorolac 30 MG/ML VIAL IVP PRN (18:30)
[2019-09-11] MEDS ORDERED: Naloxone 0.4 MG/ML INJ IVP PRN (18:30)
[2019-09-11] MEDS ORDERED: Ondansetron 4 MG/2 ML VIAL IVP PRN (18:30)
[2019-09-11 18:55] VITALS: BP 142/72
[2019-09-11] MEDS ORDERED: lamoTRIgine 100 MG TABLET PO SCH (21:00)
[2019-09-11] MEDS ORDERED: hydrOXYzine pamoate 25 MG CAPSULE PO SCH (21:00)
[2019-09-11] MEDS ORDERED: cefTRIAXone 1,000 MG in Water for inj. (sterile) 10 ML IVP SCH (21:00)
[2019-09-12] MEDS ORDERED: Cholecalciferol (D-3) 1,000 UNIT (25MCG) TABLET PO SCH (09:00)
== END 2019-09-11 20:41 | disposition home or self-care (01) ==
LOC: EMEROOARM 18:12 → 3ANU 18:12 → SUATTDRO 09-10 01:05 → 3ANU 09-10 01:30
PROVIDERS: ADMIT Internal Medicine; ATTEND Family Medicine

== ENCOUNTER 2019-11-26 13:18 | Inpatient (IN) ==
[2019-11-26] MEDS ORDERED: *HR* HYDROcodone/Acet 10/325 mg TABLET PO ONE (13:56)
[2019-11-26] MEDS ORDERED: Ibuprofen 800 MG TABLET PO ONE (13:56)
[2019-11-26 15:08] LABS: Bilirubin,Urine Negative (Negative); Blood,Urine Large (Negative); Clarity,Urine Turbid (Clear); Color,Urine Red (Yellow); Glucose,Urine (UA) Normal (Normal); Hyaline Casts,Urine None Seen per lpf (None-Few); Ketones,Urine Trace mg/dL (Negative); Leukocyte Esterase,Urine Moderate (Negative); Nitrite,Urine Negative (Negative); Protein,Urine >=300 mg/dL (Neg-Trace); Specific Gravity,Urine 1.016 (1.010-1.025); Urobilinogen,Urine Normal (Normal)
[2019-11-26] MEDS ORDERED: *HR* HYDROmorphone (PF) 1 MG/ML SYRINGE IM ONE (15:31)
[2019-11-26] MEDS ORDERED: *HR* HYDROmorphone (PF) 1 MG/ML SYRINGE IVP ONE (15:36)
[2019-11-26] MEDS ORDERED: AMPICILLIN IVPB ONE (15:38)
[2019-11-26] MEDS ORDERED: SODIUM CHLORIDE 0.9% IVPB ONE (15:38)
[2019-11-26 15:39] LABS: Basophils % 0.4 %; Eosinophils # 0.1 K/mcL (0.0-0.6); Eosinophils % 0.9 %; Hematocrit 39.7 % (35.3-44.9); Hemoglobin 13.1 g/dL (11.5-15.4); Immature Granulocytes % 0.2 % (0-4); Lymphocytes # 1.9 K/mcL (0.6-4.6); Lymphocytes % 35.9 %; Mean Corpuscular Hemoglobin 28.9 pg (28.0-33.3); Mean Corpuscular Volume 87.6 fL (83.0-100.0); Mean Platelet Volume 10.1 fL (9.4-12.4); Monocytes # 0.3 K/mcL (0.0-1.3); Monocytes % 5.7 %; Platelet Count 264 K/mcL (140-400); Red Blood Count 4.53 M/mcL (3.82-4.97); Red Cell Distribution Width 14.2 % (11.5-14.5); Segmented Neutrophils % 56.9 %; White Blood Count 5.3 K/mcL (4.3-11.1)
[2019-11-26 15:43] LABS: Squamous Epithelial Cell,Urine Few per lpf (None-Few)
[2019-11-26 15:51] LABS: Bacteria,Urine Few per hpf (None-Few); Yeast,Urine Few per hpf (None Seen)
[2019-11-26] MEDS ORDERED: Ampicillin 1,000 MG in 0.9 % Sodium Chloride Mini Bag 100 ML IVPB ONE (16:00)
[2019-11-26 16:12] LABS: Alanine Aminotransferase 24 Units/L (7-52); Albumin 3.9 g/dL (3.5-5.7); Albumin/Globulin Ratio 1.4 (1.1-2.2); Alkaline Phosphatase 104 Units/L (34-104); Aspartate Amino Transferase 19 Units/L (13-39); BUN/Creatinine Ratio 22 (6-26); Bilirubin,Total 0.3 mg/dL (0.3-1.0); Blood Urea Nitrogen 19 mg/dL (6-20); Calcium 9.8 mg/dL (8.6-10.3); Carbon Dioxide 24 mEq/L (23-29); Chloride 107 mEq/L (98-107); Globulin 2.8 g/dL (2.4-3.5); Glucose 83 mg/dL (70-105); Osmolality,Calculated 289 (280-300); Potassium 4.2 mEq/L (3.5-5.1); Sodium 139 mEq/L (136-145); Total Protein 6.7 g/dL (6.4-8.9); eGFR For African Americans > 60 (> 60); eGFR For Non-African Americans > 60 (> 60)
[2019-11-26] MEDS ORDERED: Naloxone 0.4 MG/ML INJ IVP PRN ×2 (16:43→17:13)
[2019-11-26] MEDS: Ondansetron 4 MG/2 ML VIAL IVP PRN (18:25)
[2019-11-26] MEDS: 0.9 % Sodium Chloride 1,000 ML IVC SCH (18:28)
[2019-11-26] MEDS: Ketorolac 30 MG/ML VIAL IVP PRN (20:56)
[2019-11-26] MEDS: Ampicillin 1,000 MG in 0.9 % Sodium Chloride Mini Bag 100 ML IVPB SCH (23:14)
[2019-11-27] MEDS: Ketorolac 30 MG/ML VIAL IVP PRN (02:24)
[2019-11-27] MEDS: 0.9 % Sodium Chloride 1,000 ML IVC SCH (03:37)
[2019-11-27 04:23] LABS: Hematocrit 36.4 % (35.3-44.9); Hemoglobin 12.1 g/dL (11.5-15.4); Mean Corpuscular HGB Conc 33.2 g/dL (31.6-35.5); Mean Corpuscular Hemoglobin 29.1 pg (28.0-33.3); Mean Corpuscular Volume 87.5 fL (83.0-100.0); Mean Platelet Volume 9.8 fL (9.4-12.4); Platelet Count 256 K/mcL (140-400); Red Blood Count 4.16 M/mcL (3.82-4.97); Red Cell Distribution Width 14.1 % (11.5-14.5); White Blood Count 7.2 K/mcL (4.3-11.1)
[2019-11-27 04:41] LABS: BUN/Creatinine Ratio 20 (6-26); Blood Urea Nitrogen 18 mg/dL (6-20); Calcium 9.3 mg/dL (8.6-10.3); Carbon Dioxide 24 mEq/L (23-29); Chloride 108 mEq/L (98-107); Glucose 72 mg/dL (70-105); Osmolality,Calculated 288 (280-300); Sodium 139 mEq/L (136-145); eGFR For African Americans > 60 (> 60); eGFR For Non-African Americans > 60 (> 60)
[2019-11-27] MEDS: Ampicillin 1,000 MG in 0.9 % Sodium Chloride Mini Bag 100 ML IVPB SCH ×4 (05:14→23:58)
[2019-11-27] MEDS: Ondansetron 4 MG/2 ML VIAL IVP PRN ×2 (08:43→14:59)
[2019-11-28] MEDS: Ketorolac 30 MG/ML VIAL IVP PRN (00:08)
[2019-11-28] MEDS ORDERED: Acetaminophen/Aspirin/Caffeine TABLET PO ONE (05:19)
[2019-11-28] MEDS: Ampicillin 1,000 MG in 0.9 % Sodium Chloride Mini Bag 100 ML IVPB SCH (05:43)
[2019-11-28 06:01] LABS: Basophils % 0.3 %; Eosinophils # 0.5 K/mcL (0.0-0.6); Eosinophils % 6.1 %; Hematocrit 37.2 % (35.3-44.9); Hemoglobin 12.1 g/dL (11.5-15.4); Immature Granulocytes % 0.3 % (0-4); Lymphocytes # 3.7 K/mcL (0.6-4.6); Lymphocytes % 46.2 %; Mean Corpuscular HGB Conc 32.5 g/dL (31.6-35.5); Mean Corpuscular Hemoglobin 28.4 pg (28.0-33.3); Mean Corpuscular Volume 87.3 fL (83.0-100.0); Monocytes # 0.5 K/mcL (0.0-1.3); Monocytes % 6.6 %; Neutrophils # 3.2 K/mcL (1.6-8.9); Platelet Count 283 K/mcL (140-400); Red Blood Count 4.26 M/mcL (3.82-4.97); Red Cell Distribution Width 13.7 % (11.5-14.5); Segmented Neutrophils % 40.5 %; White Blood Count 7.9 K/mcL (4.3-11.1)
[2019-11-28 06:26] LABS: BUN/Creatinine Ratio 21 (6-26); Blood Urea Nitrogen 23 mg/dL (6-20); Calcium 10.3 mg/dL (8.6-10.3); Carbon Dioxide 28 mEq/L (23-29); Chloride 99 mEq/L (98-107); Glucose 88 mg/dL (70-105); Osmolality,Calculated 291 (280-300); Potassium 4.1 mEq/L (3.5-5.1); Sodium 139 mEq/L (136-145); eGFR For African Americans > 60 (> 60); eGFR For Non-African Americans 53 (> 60)
[2019-11-28] MEDS: Ondansetron 4 MG/2 ML VIAL IVP PRN (08:43)
[2019-11-28] MEDS ORDERED: Amoxicillin 500 MG CAPSULE PO SCH (12:00)
[2019-11-28 15:00] VITALS: BP 158/90
== END 2019-11-28 17:09 | disposition home or self-care (01) | DRG 463 ==
LOC: EMEROOARM 13:18 → SUATTDRO 16:30 → 3ANU 16:30
PROVIDERS: ADMIT Internal Medicine; ATTEND Internal Medicine